=== PATIENT | female | born 1990 | race Caucasian/White ===

== ENCOUNTER 2016-09-13 18:54 | Emergency (ER) | payer MEDICAID ==
[~2016-09-13] VITALS: Ht 157.5 cm; Wt 112.0 kg
[~2016-09-13 18:54] MED LIST: ACHYD1T PO; ALBU8.5H2 IH; AZIT-21 PO; BREA1EAC5 MC; CLIN300C11 PO; CTLP20T PO; DCS100C PO; DEPRESSION MED; FAMO-119 PO; FLUO20CA42 PO; FLUO40CA PO; FLX10C PO; GNT.3OO351 OP; HC A28.3 PR; IBP800T PO; LEVO1CAP10; METR500T PO; NICO1PAT6 TD; ONDA4TAB11 PO; ONDA8TAB13 PO; PREN-115 PO; QUET100T32 PO; QUET25TA PO; QUET50TA43 PO; SULF-222 PO; TRM50T PO; [UNRECOGNIZED DRUG - CODE] PO; [UNRECOGNIZED DRUG - CODE] PO
--- NOTE | 2016-09-13 20:40 | ED General ---
General Chief Complaint: General Problems/Pain Stated Complaint: VOMITING/COUGH Nursing Triage Note: Pt presents to ED with c/o productive cough, intermittent fever, and wanting hcg test performed. Pt denies use of OTC medications. Pt reports she has taken 6 urine tests that were all positive and that she would like blood drawn. Pt denies any problems with this . LMP 12-15-16. Nursing Sepsis Screen: Possible Sepsis Risk Source of Information: Patient Exam Limitations: No Limitations History of Present Illness Time Seen by Provider: 20:40 Initial Comments Patient presents to the emergency department with complaints of productive cough , intermittent fever, chest and nasal congestion, and sore throat. Denies using kakj-ngy-vfvfryl medications. Patient also reports wanting an hCG test performed. Patient states she has taken 6 test which were all positive. Scheduled to see [facility] Thursday for test as well. Denies vaginal discharge, vaginal bleeding, abdominal pain, cramping, dysuria, frequency, hematuria, nausea, vomiting. Timing/Duration: 2-3 Days, Constant Modifying Factors: worse with Other (worse with coughing.) Allergies and Home Medications Allergies Coded Allergies: Estradiol Cypionate (Verified Allergy, Unknown, HIVES AND SWELLING, ) Penicillins (Verified Allergy, Unknown, HIVES, 01/31/15) aripiprazole (Unverified Allergy, Unknown, 03/13/15) Home Medications Cephalexin 500 Mg Capsule #30 500 MG PO TID Prescribed by: JAYNE CHRISTOPHER on 09/13/162119 Fluoxetine HCl 20 Mg Capsule 20 MG PO DAILY (Reported) Constitutional: No chills, No diaphoresis, No dizziness, No fever, malaise EENTM: see HPI Respiratory: see HPINo short of breath, No stridor, No wheezing Cardiovascular: no symptoms reported Gastrointestinal: no symptoms reported 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: no symptoms reported Musculoskeletal: no symptoms reported Skin: no symptoms reported Psychiatric/Neurological: No Symptoms Reported All Other Systems Reviewed Negative Unless Noted: Yes (Negative excepted noted.) Past Bgovtqf-Crrrpf-Tuajsd Hx Patient Social History Alcohol Use: Occasionally Uses Recreational Drug Use: No Smoking Status: Current Everyday Smoker Type Used: Cigarettes Former Smoker/When Quit: May 10, 2013 Recent Foreign Travel: No Contact w/Someone Who Travel: No Recent Infectious Disease Expo: No Recent Hopitalizations: No Physical Abuse Screen: No Sexual Abuse: No Immunizations Up To Date Tetanus Booster (TDap): Less than 5yrs PED Vaccines UTD: Yes Date of Influenza Vaccine: Jun 07, 2014 Seasonal Allergies Seasonal Allergies: No Surgeries HX Surgeries: Yes Surgeries: Section Respiratory Hx Respiratory Disorders: No Cardiovascular Hx Cardiac Disorders: No Neurological Hx Neurological Disorders: No Reproductive System Hx Reproductive Disorders: No 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 Hx 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 Disorders: Yes 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 Disorders: UTI-Chronic Gastrointestinal Hx Gastrointestinal Disorders: No Musculoskeletal Hx Musculoskeletal Disorders: No Endocrine Hx Endocrine Disorders: No HEENT HX ENT Disorders: No Cancer Hx Cancer: No Psychosocial Hx Psychiatric Problems: Yes Behavioral Health Disorders: Anxiety, Bipolar, Depression Integumentary HX Skin/Integumentary Disorder: No Blood Transfusions Hx Blood Disorders: No Reviewed Nursing Assessment Reviewed/Agree w Nursing PMH: Yes Family Medical History Significant Family History: No Pertinent Family Hx Family Medial History: Cancer 19 MOTHER, Onset:25s - 30 (uterine) Family history: Allergy 19 FATHER (seasonal allergies) Family history: Diabetes mellitus 19 FATHER (type 2) Family history: Hypertension 19 FATHER, Onset: - Hereditary disease 19 FATHER (bipolar) 19 MOTHER (bipolar) History of drug abuse 19 MOTHER, Onset: - Psychotic disorder 19 FATHER (bipolar) 19 MOTHER ([id number] suicidal) No Family History of: Abdominal aortic aneurysm Austin's disease Alcoholism Aphasia Cancer of colon Cataract Chest pain Congenital heart disease Congestive heart failure Cystic fibrosis Dementia Dysphagia Family history: Alzheimer's disease Family history: Arthritis Family history: Asthma Family history: Breast disease Family history: Cardiovascular disease Family history: Coronary thrombosis Family history: Gastrointestinal disease Family history: Glaucoma Family history: Osteoporosis Family history: Thyroid disorder Headache Hearing loss Heart disease History of - anemia History of - disorder History of - respiratory disease Human immunodeficiency virus (HIV) seropositivity Hypercholesterolemia Infertile Kidney disease Malignant neoplasm of lung Myocardial infarction Parkinson's disease Prostate cancer Seizure disorder Stroke Tuberculosis Visual impairment Physical Exam Vital Signs Vital Sign - Last 12Hours 09/13/16 20:16 Temp 97.9 Pulse 110 Resp 18 B/P 137/98 Pulse Ox 97 O2 Delivery Room Air Capillary Refill : Less Than 3 Seconds General Appearance: No Apparent Distress WD/WN Other (patient sitting up in the bed with legs crossed "east timorese style".) HEENT: PERRL/EOMI TMs Normal Pharyngeal ErythemaNo Tonsillar Enlargement, Other ((+) nasal congestion with maxillary sinus tenderness.) Neck: Full Range of Motion Non Tender Supple Lymphadenopathy (L) Lymphadenopathy (R) Respiratory: Lungs Clear Normal Breath Sounds No Respiratory Distress Cardiovascular: No Edema No Murmur Normal Peripheral Pulses Tachycardia Gastrointestinal: Normal Bowel Sounds No Organomegaly Non Tender SoftNo Distended Back: Normal Inspection No CVA Tenderness Extremity: Normal Capillary Refill Neurologic/Psychiatric: Alert Oriented x3 Normal Mood/Affect Skin: Normal Color Warm/Dry Progress/Results/Core Measures Results/Orders Lab Results Laboratory Tests Test 09/13/16 20:23 Range/Units Urine Bacteria MODERATE H /HPF Urine Bilirubin NEGATIVE NEGATIVE Urine Casts NONE /LPF Urine Clarity VERY CLOUDY H Urine Color YELLOW Urine Crystals NONE /LPF Urine Culture Indicated NO Urine Glucose (UA) NEGATIVE NEGATIVE Urine Ketones NEGATIVE NEGATIVE Urine Leukocyte Esterase 1+ H NEGATIVE Urine Mucus LARGE H /LPF Urine Nitrite NEGATIVE NEGATIVE Urine Protein 2+ H NEGATIVE Urine RBC RARE /HPF Urine RBC (Auto) 1+ H NEGATIVE Urine Specific [place] 1.025 H 1.016-1.022 Urine Squamous Epithelial Cells >50 H /HPF Urine Urobilinogen 8 H NORMAL MG/DL Urine WBC 2-5 /HPF Urine pH 6 5-9 My Orders Orders-JAYNE CRHISTOPHER Urine Bedside (09/13/16 20:45) Ua Culture If Indicated (09/13/16 21:17) Vital Signs/I&O Blood Pressure Mean: 111 Departure Communication Progress Notes Urine hCG you repeated by this examiner at patient's request. Patient weakly positive for . results were discussed with the patient. Proceed with discharge to home with oral antibiotics. Patient instructed to follow-up with [facility] tomorrow as previously scheduled. All return precautions were discussed with the patient. Patient voices understanding and agrees with the treatment plan. Patient case discussed with Dr. Dorsey, he agrees with the plan of care. Impression Impression: Primary Impression: Sinusitis, acute Qualified Code: J01.10 - Acute frontal sinusitis, unspecified Additional Impression: Positive urine test Disposition: HOME, SELF-CARE Condition: Improved Departure-Patient Inst. Decision time for Depature: 21:18 Referrals: [facility] (PCP/Family) Primary Care Physician Patient Instructions: Sinusitis, Adult (DC), Smoking and Add. Discharge Instructions: All discharge instructions reviewed with patient and/or family. Voiced understanding. Medications as instructed. Tylenol [id number] as directed for pain or fever if needed. Push fluids. Cool humidifier. Saline nasal spray [id number] as directed for symptoms. Follow-up with your family practitioner Thursday as previously scheduled. Return to the emergency department for worsened symptoms or any other concerns. Scripts Cephalexin 500 Mg [id number] Mg PO TID #30 CAP Ref 0 Prov:JAYNE CHRISTOPHER 09/13/16 JAYNE CHRISTOPHER Sep 13, 2016 20:40
[2016-09-13] MEDS ORDERED: CEPH500C PO (21:20)
[2016-09-13 21:28] LABS: BILIRUBIN,URINE NEGATIVE (NEGATIVE); KETONES,URINE NEGATIVE (NEGATIVE); LEUKOCYTE ESTERASE ,URINE 1+ (NEGATIVE); NITRITE,URINE NEGATIVE (NEGATIVE); PH,URINE 6 (5-9); PROTEIN,URINE 2+ (NEGATIVE); UROBILINOGEN,URINE 8 MG/DL (NORMAL)
[2016-09-13 21:44] LABS: SQUAMOUS EPITHELIAL CELL,UR >50 /HPF
[2016-09-13 21:53] VITALS: BP 132/89
== END 2016-09-13 21:53 | disposition home or self-care (01) ==
LOC: EDUNIT# 18:54 → ER 18:55
DX: J01.90 Acute sinusitis, unspecified (principal); Z32.01 Encounter for pregnancy test, result positive; R11.10 Vomiting, unspecified
CPT/HCPCS: 81000; 84703; 99282

== ENCOUNTER 2016-09-21 19:47 | Emergency (ER) | payer MEDICAID ==
[~2016-09-21] VITALS: Ht 157.5 cm; Wt 112.0 kg
[~2016-09-21 19:47] MED LIST changes: +CEPH500C PO
[2016-09-21 21:15] LABS: BILIRUBIN,URINE NEGATIVE (NEGATIVE); KETONES,URINE NEGATIVE (NEGATIVE); LEUKOCYTE ESTERASE ,URINE 1+ (NEGATIVE); NITRITE,URINE NEGATIVE (NEGATIVE); PH,URINE 6 (5-9); PROTEIN,URINE NEGATIVE (NEGATIVE); UROBILINOGEN,URINE NORMAL (NORMAL)
[2016-09-21 21:32] LABS: WBC,URINE 0-2 /HPF
--- NOTE | 2016-09-21 21:58 | ED Abdominal Pain ---
General Chief Complaint: -Female Stated Complaint: CRAMPING Nursing Triage Note: PT TO ED 5 W/ FAMILY FOR C/O ABD CRAMPING. REPORTS SHE IS 6WKS . DENIES BLEEDING, DISCHARGE, PAIN/BURNING UPON URINATION AT THIS TIME Sepsis Screen: No Definite Risk Source of Information: Patient Exam Limitations: No Limitations History of Present Illness Time Seen By Provider: 21:57 Initial Comments To ER with suprapubic abdominal cramping for the past 6 days. She found out one week ago that she was . Ab1. She denies any vaginal bleeding whatsoever. Denies dysuria fevers or chills. Timing/Duration: 1 Week Severity/Quality: Cramping Location: Suprapubic Radiation: No Radiation Activities at Onset: None Associated Symptoms: No Fever/Chills, No Nausea/Vomiting Allergies and Home Medications Allergies Coded Allergies: Estradiol Cypionate (Verified Allergy, Unknown, HIVES AND SWELLING, ) Penicillins (Verified Allergy, Unknown, HIVES, 01/31/15) aripiprazole (Unverified Allergy, Unknown, 03/13/15) Review of Systems Constitutional: see HPI EENTM: No Symptoms Reported Respiratory: No Symptoms Reported Cardiovascular: No Symptoms Reported Gastrointestinal: See HPI Abdominal PainDenies Nausea, Denies Vomiting 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: No Symptoms Reported Musculoskeletal: no symptoms reported Skin: no symptoms reported Psychiatric/Neurological: No Symptoms Reported Endocrine: No Symptoms Reported Past Ehekhlz-Bfwjlf-Siapuh Hx Patient Social History Alcohol Use: Denies Use Recreational Drug Use: No Smoking Status: Current Everyday Smoker Type Used: Cigarettes Former Smoker/When Quit: May 10, 2013 Recent Foreign Travel: No Contact w/Someone Who Travel: No Recent Infectious Disease Expo: No Recent Hopitalizations: No Physical Abuse Screen: No Sexual Abuse: No Immunizations Up To Date Tetanus Booster (TDap): Less than 5yrs PED Vaccines UTD: Yes Date of Influenza Vaccine: Jun 07, 2014 Seasonal Allergies Seasonal Allergies: No Surgeries HX Surgeries: Yes Surgeries: Section Respiratory Hx Respiratory Disorders: No Cardiovascular Hx Cardiac Disorders: No Neurological Hx Neurological Disorders: No Reproductive System : Yes Hx : 3 Hx Para: 1 Hx Total # of Abortions (Spona: 1 Hx Reproductive Disorders: No Sexually Transmitted Disease: No 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 Hx 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 Disorders: Yes 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 Disorders: UTI-Chronic Gastrointestinal Hx Gastrointestinal Disorders: No Musculoskeletal Hx Musculoskeletal Disorders: No Endocrine Hx Endocrine Disorders: No HEENT HX ENT Disorders: No Cancer Hx Cancer: No Psychosocial Hx Psychiatric Problems: Yes Behavioral Health Disorders: Anxiety, Bipolar, Depression Integumentary HX Skin/Integumentary Disorder: No Blood Transfusions Hx Blood Disorders: No Family Medical History Significant Family History: No Pertinent Family Hx Family Medial History: Cancer 19 MOTHER, Onset: - 30 (uterine) Family history: Allergy 19 FATHER (seasonal allergies) Family history: Diabetes mellitus 19 FATHER (type 2) Family history: Hypertension 19 FATHER, Onset: - Hereditary disease 19 FATHER (bipolar) 19 MOTHER (bipolar) History of drug abuse 19 MOTHER, Onset: - Psychotic disorder 19 FATHER (bipolar) 19 MOTHER ([id number] suicidal) No Family History of: Abdominal aortic aneurysm Lamar's disease Alcoholism Aphasia Cancer of colon Cataract Chest pain Congenital heart disease Congestive heart failure Cystic fibrosis Dementia Dysphagia Family history: Alzheimer's disease Family history: Arthritis Family history: Asthma Family history: Breast disease Family history: Cardiovascular disease Family history: Coronary thrombosis Family history: Gastrointestinal disease Family history: Glaucoma Family history: Osteoporosis Family history: Thyroid disorder Headache Hearing loss Heart disease History of - anemia History of - disorder History of - respiratory disease Human immunodeficiency virus (HIV) seropositivity Hypercholesterolemia Infertile Kidney disease Malignant neoplasm of lung Myocardial infarction Parkinson's disease Prostate cancer Seizure disorder Stroke Tuberculosis Visual impairment Physical Exam Vital Signs VS - Last 72 Hours, by Label 09/21/16 20:51 Temp 98.6 Pulse 116 Resp 20 B/P 139/87 Pulse Ox 98 O2 Delivery Room Air Capillary Refill : Less Than 3 Seconds General Appearance: WD/WN no apparent distress HEENT: PERRL/EOMI normal ENT inspection Respiratory: normal breath sounds no respiratory distress no accessory muscle use Cardiovascular: regular rate, rhythm no murmur Gastrointestinal: normal bowel sounds non tender soft Extremities: normal range of motion non-tender Neurologic/Psychiatric: alert normal mood/affect oriented x 3 Skin: normal color warm/dry Progress/Results/Core Measures Results/Orders Lab Results Laboratory Tests Test 09/21/16 20:57 09/21/16 21:55 Range/Units Urine Bacteria NONE /HPF Urine Bilirubin NEGATIVE NEGATIVE Urine Casts NONE /LPF Urine Clarity SLIGHTLY CLOUDY Urine Color YELLOW Urine Crystals NONE /LPF Urine Culture Indicated NO Urine Glucose (UA) NEGATIVE NEGATIVE Urine Ketones NEGATIVE NEGATIVE Urine Leukocyte Esterase 1+ H NEGATIVE Urine Mucus NEGATIVE /LPF Urine Nitrite NEGATIVE NEGATIVE Urine Protein NEGATIVE NEGATIVE Urine RBC NONE /HPF Urine RBC (Auto) NEGATIVE NEGATIVE Urine Specific [place] 1.020 1.016-1.022 Urine Squamous Epithelial Cells 5-10 /HPF Urine Urobilinogen NORMAL NORMAL MG/DL Urine WBC 0-2 /HPF Urine pH 6 5-9 Basophils # (Auto) 0.0 0.0-0.1 10^3/uL Basophils (%) (Auto) 0 0-10 % Eosinophils # (Auto) 0.1 0.0-0.3 10^3/uL Eosinophils (%) (Auto) 1 0-10 % Hematocrit 41 35-52 % Hemoglobin 14.1 11.5-16.0 G/DL Human Chorionic Gonadotropin, Quant 592 H <5 MIU/ML Lymphocytes # (Auto) 3.0 1.0-4.0 X 10^3 Lymphocytes (%) (Auto) 25 12-44 % Mean Corpuscular Hemoglobin 29 25-34 PG Mean Corpuscular Hemoglobin Concent 34 32-36 G/DL Mean Corpuscular Volume 86 80-99 FL Mean Platelet Volume 10.2 7.4-10.4 FL Monocytes # (Auto) 0.7 0.0-1.0 X 10^3 Monocytes (%) (Auto) 6 0-12 % Neutrophils # (Auto) 8.1 H 1.8-7.8 X 10^3 Neutrophils (%) (Auto) 68 42-75 % Platelet Count 216 130-400 10^3/uL Red Blood Count 4.83 4.35-5.85 10^6/uL Red Cell Distribution Width 13.2 10.0-14.5 % White Blood Count 11.9 H 4.3-11.0 10^3/uL My Orders Orders-ÁLVARO KIRKLAND APRN Hcg,Quantitative (09/21/16 21:43) Cbc With Automated Diff (09/21/16 21:43) Vital Signs/I&O Vital Sign - Last 12Hours 09/21/16 20:51 Temp 98.6 Pulse 116 Resp 20 B/P 139/87 Pulse Ox 98 O2 Delivery Room Air Blood Pressure Mean: 104 Departure Communication Time/Spoke to Admitting Phy: 22:46 Progress Notes Discussed the case with Dr. Arana. Given her Quant of 591 ultrasound would be helpful at this point. She should follow-up with primary care. Impression Impression: Primary Impression: Cramping affecting , antepartum Disposition: 01 HOME, SELF-CARE Condition: Stable Departure-Patient Inst. Decision time for Depature: 22:46 Referrals: [facility] [place] (PCP/Family) Primary Care Physician Patient Instructions: NO INSTRUCTIONS GIVEN Add. Discharge Instructions: 1. Return to ER for any concerns 2. Follow-up with your doctor next week 3. All discharge instructions reviewed with patient and/or family. Voiced understanding. ÁLVARO KIRKLAND APRN Sep 21, 2016 21:58
[2016-09-21 22:05] LABS: BASOPHILS % (AUTO) 0 % (0-10); EOSINOPHILS # (AUTO) 0.1 10^3/uL (0.0-0.3); EOSINOPHILS % (AUTO) 1 % (0-10); LYMPHOCYTES % (AUTO) 25 % (12-44); MEAN CORPUSCULAR HEMOGLOBIN 29 PG (25-34); MEAN CORPUSCULAR HGB CONC 34 G/DL (32-36); MEAN CORPUSCULAR VOLUME 86 FL (80-99); MEAN PLATELET VOLUME 10.2 FL (7.4-10.4); MONOCYTES # (AUTO) 0.7 X 10^3 (0.0-1.0); MONOCYTES % (AUTO) 6 % (0-12); NEUTROPHILS # (AUTO) 8.1 X 10^3 (1.8-7.8); NEUTROPHILS % (AUTO) 68 % (42-75); PLATELET COUNT 216 10^3/uL (130-400); RED BLOOD COUNT 4.83 10^6/uL (4.35-5.85); RED CELL DISTRIBUTION WIDTH 13.2 % (10.0-14.5); WHITE BLOOD COUNT 11.9 10^3/uL (4.3-11.0)
[2016-09-21 22:50] VITALS: BP 0/0
== END 2016-09-21 22:50 | disposition home or self-care (01) ==
LOC: EDUNIT# 19:47 → ER 19:50
DX: O26.891 Other specified pregnancy related conditions, first trimester (principal); O99.331 Smoking (tobacco) complicating pregnancy, first trimester; Z3A.01 Less than 8 weeks gestation of pregnancy
CPT/HCPCS: 36415; 81000; 84702; 85025; 99283

== ENCOUNTER 2016-10-07 18:05 | Emergency (ER) | payer MEDICAID ==
[~2016-10-07] VITALS: Ht 157.5 cm; Wt 112.0 kg
--- NOTE | 2016-10-07 18:23 | ED GU-Female ---
General Chief Complaint: -Female Stated Complaint: 8 WKS PREG/VAG BLEEDING Source: patient History of Present Illness Time seen by provider: 18:18 Initial Comments PT STATES SHE IS 6 WEEKS AND SPOTTING IN ER 09/21/16 FOR SIMILAR WAS SEEN AT [facility] ER FOR CRAMPING AND SPOTTING ON 10/04/16--STATES HER ULTRASOUND WAS NORMAL AND HCG WAS 722, THEN WENT BACK TODAY TO [facility] FOR OUTPATIENT LAB AND HCG WAS 754 PT BEGAN SPOTTING AGAIN AT 1600 TODAY--BLOOD ON TISSUE WITH WIPING AND SMALL SPOT ON PANTILINER, BUT NO PAIN TODAY NO URINARY SYMPTOMS NO NAUSEA/VOMITING AT THIS TIME, BUT HAS HAD SOME MILD NAUSEA IN THE MORNINGS. HAS NOT ATTEMPTED TO FOLLOW UP WITH [facility], AND DOES NOT HAVE AN APPOINTMENT --STATES "THEY WON'T SEE ME UNTIL I'M 10 WEEKS" , BUT HAS NOT MADE AN APPOINTMENT FOR THEN EITHER LMP 08/21/17--NORMAL, HAD POSITIVE HOME TEST WEEK OF SEPTEMBER PT IS AB1--NO D&C DONE PCP: [facility] Allergies and Home Medications Allergies Coded Allergies: Estradiol Cypionate (Verified Allergy, Unknown, HIVES AND SWELLING, ) Penicillins (Verified Allergy, Unknown, HIVES, 01/31/15) aripiprazole (Unverified Allergy, Unknown, 03/13/15) Constitutional: no symptoms reported Respiratory: no symptoms reported Gastrointestinal: no symptoms reported 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: see HPI : Yes LMP: Aug 21, 2016 Musculoskeletal: no symptoms reported Skin: no symptoms reported Psychiatric/Neurological: No Symptoms Reported Endocrine: No Symptoms Reported Hematologic/Lymphatic: No Symptoms Reported Past Ftbpsdg-Btyovt-Igzrai Hx Patient Social History Alcohol Use: Denies Use Recreational Drug Use: No Smoking Status: Current Everyday Smoker Type Used: Cigarettes Recent Foreign Travel: No Contact w/Someone Who Travel: No Recent Hopitalizations: No Immunizations Up To Date Tetanus Booster (TDap): Less than 5yrs PED Vaccines UTD: Yes Date of Influenza Vaccine: Jun 07, 2014 Seasonal Allergies Seasonal Allergies: No Surgeries HX Surgeries: Yes Surgeries: Section Respiratory Hx Respiratory Disorders: No Cardiovascular Hx Cardiac Disorders: No Neurological Hx Neurological Disorders: No Reproductive System Hx Reproductive Disorders: No Sexually Transmitted Disease: No 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 Hx 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 Disorders: Yes 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 Disorders: UTI-Chronic Gastrointestinal Hx Gastrointestinal Disorders: No Musculoskeletal Hx Musculoskeletal Disorders: No Endocrine Hx Endocrine Disorders: No HEENT HX ENT Disorders: No Cancer Hx Cancer: No Psychosocial Hx Psychiatric Problems: Yes Behavioral Health Disorders: Anxiety, Bipolar, Depression Integumentary HX Skin/Integumentary Disorder: No Blood Transfusions Hx Blood Disorders: No Family Medical History Significant Family History: No Pertinent Family Hx Family Medial History: Cancer 19 MOTHER, Onset:25's - 30 (uterine) Family history: Allergy 19 FATHER (seasonal allergies) Family history: Diabetes mellitus 19 FATHER (type 2) Family history: Hypertension 19 FATHER, Onset: - Hereditary disease 19 FATHER (bipolar) 19 MOTHER (bipolar) History of drug abuse 19 MOTHER, Onset: - Psychotic disorder 19 FATHER (bipolar) 19 MOTHER ([id number] suicidal) No Family History of: Abdominal aortic aneurysm [place]'s disease Alcoholism Aphasia Cancer of colon Cataract Chest pain Congenital heart disease Congestive heart failure Cystic fibrosis Dementia Dysphagia Family history: Alzheimer's disease Family history: Arthritis Family history: Asthma Family history: Breast disease Family history: Cardiovascular disease Family history: Coronary thrombosis Family history: Gastrointestinal disease Family history: Glaucoma Family history: Osteoporosis Family history: Thyroid disorder Headache Hearing loss Heart disease History of - anemia History of - disorder History of - respiratory disease Human immunodeficiency virus (HIV) seropositivity Hypercholesterolemia Infertile Kidney disease Malignant neoplasm of lung Myocardial infarction Parkinson's disease Prostate cancer Seizure disorder Stroke Tuberculosis Visual impairment Physical Exam Vital Signs Vital Sign - Last 12Hours 10/07/16 18:20 Temp 97.3 Pulse 75 Resp 18 B/P 145/89 Pulse Ox 97 Capillary Refill : General Appearance: WD/WN obese Cardiovascular: regular rate, rhythm Respiratory: normal breath sounds Gastrointestinal: normal bowel sounds non tender soft Back: normal inspection Extremities: normal inspection Neurologic/Psychiatric: loss prevention specialist II-XII nml as tested no motor/sensory deficits alert normal mood/affect oriented x 3 Progress/Results/Core Measures Results/Orders Lab Results Laboratory Tests Test 10/07/16 18:45 Range/Units Anion Gap 11 5-14 MMOL/L BUN/Creatinine Ratio 12 Basophils # (Auto) 0.0 0.0-0.1 10^3/uL Basophils (%) (Auto) 0 0-10 % Blood Urea Nitrogen 9 7-18 MG/DL Calcium Level 9.4 8.5-10.1 MG/DL Carbon Dioxide Level 22 21-32 MMOL/L Chloride Level 106 98-107 MMOL/L Creatinine 0.77 0.60-1.30 MG/DL Eosinophils # (Auto) 0.1 0.0-0.3 10^3/uL Eosinophils (%) (Auto) 1 0-10 % Estimat Glomerular Filtration Rate > 60 Glucose Level 93 70-105 MG/DL Hematocrit 44 35-52 % Hemoglobin 15.1 11.5-16.0 G/DL Human Chorionic Gonadotropin, Quant 719 H <5 MIU/ML Lymphocytes # (Auto) 2.7 1.0-4.0 X 10^3 Lymphocytes (%) (Auto) 20 12-44 % Mean Corpuscular Hemoglobin 29 25-34 PG Mean Corpuscular Hemoglobin Concent 34 32-36 G/DL Mean Corpuscular Volume 85 80-99 FL Mean Platelet Volume 10.1 7.4-10.4 FL Monocytes # (Auto) 0.8 0.0-1.0 X 10^3 Monocytes (%) (Auto) 6 0-12 % Neutrophils # (Auto) 9.8 H 1.8-7.8 X 10^3 Neutrophils (%) (Auto) 73 42-75 % Platelet Count 232 130-400 10^3/uL Potassium Level 3.7 3.6-5.0 MMOL/L Red Blood Count 5.23 4.35-5.85 10^6/uL Red Cell Distribution Width 13.6 10.0-14.5 % Sodium Level 139 135-145 MMOL/L White Blood Count 13.5 H 4.3-11.0 10^3/uL My Orders Orders-DIONTE MONSIVAIS DO Basic Metabolic Panel (10/07/16 18:21) Cbc With Automated Diff (10/07/16 18:21) Hcg,Quantitative (10/07/16 18:21) Us Ob Single Fetus<14 [id number] (10/07/16 18:21) Vital Signs/I&O Vital Sign - Last 12Hours 10/07/16 18:20 Temp 97.3 Pulse 75 Resp 18 B/P 145/89 Pulse Ox 97 Progress Note : Progress Note BLOOD TYPE: B + NO ACTIVE BLEEDING DURING ER STAY, AND DID NOT USE ANY PADS DURING ER STAY Diagnostic Imaging Comments ULTRASOUND--CYSTIC STRUCTURE IN ENDOMETRIAL CAVITY, MAY RELATE TO EARLY GESTATIONAL SAC OF APPROXIMATELY 5 WEEKS 1 DAY. NO DEFINITE POLE OR YOLK SAC. CANNOT RULE OUT BLIGHTED OVUM OR ECTOPIC WITH PSEUDO GESTATIONAL SAC. PER RADIOLOGIST REPORT @ 1912 Reviewed: Reviewed by Me Departure Impression Impression: Primary Impression: Threatened miscarriage in early Disposition: 01 HOME, SELF-CARE Condition: Stable Departure-Patient Inst. [place]: [facility] [place] [facility] [place] (PCP/Family) Primary Care Physician Patient Instructions: Threatened Miscarriage (DC) Add. Discharge Instructions: NOTHING IN VAGINA--NO TAMPONS, DOUCHING OR INTERCOURSE KEEP AN ACCURATE PAD COUNT--RETURN TO ER IF SOAKING MORE THAN 1 MAXI PAD AN HOUR FOLLOW UP WITH [facility] THIS WEEK FOR FURTHER CARE All discharge instructions reviewed with patient and/or family. Voiced understanding. DIONTE MONSIVAIS DO Oct 07, 2016 18:23
[2016-10-07 18:56] LABS: BASOPHILS % (AUTO) 0 % (0-10); EOSINOPHILS # (AUTO) 0.1 10^3/uL (0.0-0.3); EOSINOPHILS % (AUTO) 1 % (0-10); LYMPHOCYTES # (AUTO) 2.7 X 10^3 (1.0-4.0); LYMPHOCYTES % (AUTO) 20 % (12-44); MEAN CORPUSCULAR HEMOGLOBIN 29 PG (25-34); MEAN CORPUSCULAR HGB CONC 34 G/DL (32-36); MEAN CORPUSCULAR VOLUME 85 FL (80-99); MEAN PLATELET VOLUME 10.1 FL (7.4-10.4); MONOCYTES # (AUTO) 0.8 X 10^3 (0.0-1.0); MONOCYTES % (AUTO) 6 % (0-12); NEUTROPHILS # (AUTO) 9.8 X 10^3 (1.8-7.8); NEUTROPHILS % (AUTO) 73 % (42-75); PLATELET COUNT 232 10^3/uL (130-400); RED BLOOD COUNT 5.23 10^6/uL (4.35-5.85); RED CELL DISTRIBUTION WIDTH 13.6 % (10.0-14.5); WHITE BLOOD COUNT 13.5 10^3/uL (4.3-11.0)
--- NOTE | 2016-10-07 19:01 | Diagnostic Imaging Report ---
INDICATION: Bleeding COMPARISON: None available TECHNIQUE: Transabdominal transvaginal first trimester pelvic OB ultrasound was performed on October 07, 2016. FINDINGS: The uterus is within normal limits in size. The endometrium measures 1.0 cm, which is within normal limits. Within the endometrial cavity there is an ovoid anechoic cystic lesion. No definite pole or yolk sac identified. If this relates to a gestational sac, it would be consistent with an estimated gestational age of 5 weeks and 1 day. The bilateral ovaries were unable to be visualized. No significant free fluid. IMPRESSION: Cystic structure within the endometrial cavity which may relate to a gestational sac would be consistent with an estimated gestational age of 5 weeks and 1 day. No definite pole or yolk sac identified. This is favored to simply relate to early gestational age. However, blighted ovum or less likely ectopic with a pseudo-gestational sac not totally excluded. Recommend correlation with beta hCG levels. Additionally, followup beta-hCG levels and ultrasound within 3-5 days could help to further evaluate. No significant free fluid. The bilateral ovaries were not seen secondary to overlying bowel gas. Dictated by: Dictated on workstation # [id number]
[2016-10-07 19:17] LABS: ANION GAP 11 MMOL/L (5-14); BLOOD UREA NITROGEN 9 MG/DL (7-18); BUN/CREATININE RATIO 12; CALCIUM 9.4 MG/DL (8.5-10.1); CARBON DIOXIDE 22 MMOL/L (21-32); CHLORIDE 106 MMOL/L (98-107); CREATININE SERUM 0.77 MG/DL (0.60-1.30); GFR ESTIMATED > 60; GLUCOSE 93 MG/DL (70-105); POTASSIUM 3.7 MMOL/L (3.6-5.0); SODIUM 139 MMOL/L (135-145)
[2016-10-07 19:41] VITALS: BP 145/89
== END 2016-10-07 19:40 | disposition home or self-care (01) ==
LOC: EDUNIT# 18:05 → ER 18:11
DX: O20.0 Threatened abortion (principal); Z3A.01 Less than 8 weeks gestation of pregnancy; O99.331 Smoking (tobacco) complicating pregnancy, first trimester
CPT/HCPCS: 36415; 76801; 80048; 84702; 85025; 99283

== ENCOUNTER 2016-12-20 20:27 | Emergency (ER) | payer MEDICAID ==
[~2016-12-20] VITALS: Ht 154.9 cm; Wt 114.3 kg
--- NOTE | 2016-12-20 20:58 | ED GU-Female ---
General Chief Complaint: -Female Stated Complaint: POSSIBLE MISCARRIAGE Source: patient Exam Limitations: no limitations History of Present Illness Time seen by provider: 20:59 Initial Comments To ER with reports of a possible miscarriage. She was seen here in September and diagnosed with miscarriage. She states that she followed up with [facility] but was told that nothing needed done. She had intermittent bleeding throughout the months of September and November and bleeding resumed about 7 days ago. She has had minimal cramping tonight and finally tonight she passed what she believes to be material. This was brought to the emergency room and we did send this to pathology. She denies any fevers or pelvic pain at this time. She denies any vaginal discharge. She states that at the time of her miscarriage in September she was told that she was about 7 weeks gestation. Timing/Duration: just prior to arrival Severity/Quality: moderate Location: suprapubic Prior 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 Problems: none Associated Symptoms: No fever/chills, No nausea/vomiting Allergies and Home Medications Allergies Coded Allergies: Estradiol Cypionate (Verified Allergy, Unknown, HIVES AND SWELLING, ) Penicillins (Verified Allergy, Unknown, HIVES, 01/31/15) aripiprazole (Unverified Allergy, Unknown, 03/13/15) Constitutional: see HPI, No chills, No fever EENTM: see HPI Respiratory: no symptoms reported Cardiovascular: no symptoms reported Gastrointestinal: No abdominal pain 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: no symptoms reported Musculoskeletal: no symptoms reported Skin: no symptoms reported Past Gfhuewg-Utrfuh-Thjjla Hx Patient Social History Alcohol Use: Occasionally Uses Recreational Drug Use: No Smoking Status: Current Everyday Smoker Type Used: Cigarettes Recent Foreign Travel: No Contact w/Someone Who Travel: No Recent Hopitalizations: No Immunizations Up To Date Tetanus Booster (TDap): Less than 5yrs PED Vaccines UTD: Yes Date of Influenza Vaccine: Jun 07, 2014 Seasonal Allergies Seasonal Allergies: No Surgeries HX Surgeries: Yes Surgeries: Section Respiratory Hx Respiratory Disorders: No Cardiovascular Hx Cardiac Disorders: No Neurological Hx Neurological Disorders: No Reproductive System Hx Reproductive Disorders: No Sexually Transmitted Disease: No 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 Hx 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 Disorders: Yes 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 Disorders: UTI-Chronic Gastrointestinal Hx Gastrointestinal Disorders: No Musculoskeletal Hx Musculoskeletal Disorders: No Endocrine Hx Endocrine Disorders: No HEENT HX ENT Disorders: No Cancer Hx Cancer: No Psychosocial Hx Psychiatric Problems: Yes Behavioral Health Disorders: Anxiety, Bipolar, Depression Integumentary HX Skin/Integumentary Disorder: No Blood Transfusions Hx Blood Disorders: No Family Medical History Significant Family History: No Pertinent Family Hx Family Medial History: Cancer 19 MOTHER, Onset: - 30 (uterine) Family history: Allergy 19 FATHER (seasonal allergies) Family history: Diabetes mellitus 19 FATHER (type 2) Family history: Hypertension 19 FATHER, Onset: - Hereditary disease 19 FATHER (bipolar) 19 MOTHER (bipolar) History of drug abuse 19 MOTHER, Onset: - Psychotic disorder 19 FATHER (bipolar) 19 MOTHER (eg5lpytg suicidal) No Family History of: Abdominal aortic aneurysm Jeff's disease Alcoholism Aphasia Cancer of colon Cataract Chest pain Congenital heart disease Congestive heart failure Cystic fibrosis Dementia Dysphagia Family history: Alzheimer's disease Family history: Arthritis Family history: Asthma Family history: Breast disease Family history: Cardiovascular disease Family history: Coronary thrombosis Family history: Gastrointestinal disease Family history: Glaucoma Family history: Osteoporosis Family history: Thyroid disorder Headache Hearing loss Heart disease History of - anemia History of - disorder History of - respiratory disease Human immunodeficiency virus (HIV) seropositivity Hypercholesterolemia Infertile Kidney disease Malignant neoplasm of lung Myocardial infarction Parkinson's disease Prostate cancer Seizure disorder Stroke Tuberculosis Visual impairment Physical Exam Vital Signs Vital Sign - Last 12Hours 12/20/16 20:32 Temp 97.1 Pulse 78 Resp 20 B/P (MAP) 125/90 Pulse Ox 98 O2 Delivery Room Air Capillary Refill : General Appearance: WD/WN, no apparent distress HEENT: PERRL/EOMI, normal ENT inspection Neck: non-tender, full range of motion Respiratory: no respiratory distress, no accessory muscle use Gastrointestinal: normal bowel sounds, non tender, soft Extremities: normal range of motion, non-tender Neurologic/Psychiatric: alert, normal mood/affect, oriented x 3 Skin: normal color, warm/dry Progress/Results/Core Measures Results/Orders Lab Results Laboratory Tests Test 12/20/16 21:01 Range/Units White Blood Count 12.1 H 4.3-11.0 10^3/uL Red Blood Count 5.11 4.35-5.85 10^6/uL Hemoglobin 14.4 11.5-16.0 G/DL Hematocrit 43 35-52 % Mean Corpuscular Volume 84 80-99 FL Mean Corpuscular Hemoglobin 28 25-34 PG Mean Corpuscular Hemoglobin Concent 34 32-36 G/DL Red Cell Distribution Width 13.6 10.0-14.5 % Platelet Count 226 130-400 10^3/uL Mean Platelet Volume 10.3 7.4-10.4 FL Human Chorionic Gonadotropin, Quant < 5 <5 MIU/ML My Orders Orders - ÁLVARO KIRKLAND APRN Cbc No Diff (12/20/16 20:52) Hcg,Quantitative (12/20/16 20:52) Ua Culture If Indicated (12/20/16 20:52) Us Non Ob Transvaginal [id number] (12/20/16 20:52) Vital Signs/I&O Vital Sign - Last 12Hours 12/20/16 20:32 Temp 97.1 Pulse 78 Resp 20 B/P (MAP) 125/90 Pulse Ox 98 O2 Delivery Room Air Departure Communication Progress Notes The passed tissue has been sent to pathology by the nurse before I was able to see it so it is being analyzed. Impression Impression: Primary Impression: passage of tissue from vagina Disposition: 01 HOME, SELF-CARE Condition: Stable Departure-Patient Inst. Decision time for Depature: 22:07 Referrals: [facility] (PCP/Family) Primary Care Physician Patient Instructions: NO INSTRUCTIONS GIVEN Add. Discharge Instructions: 1. Return to ER for any concerns 2. Follow-up with your regular doctor next week 3. All discharge instructions reviewed with patient and/or family. Voiced understanding. ÁLVARO KIRKLAND APRN Dec 20, 2016 20:58
[2016-12-20 21:09] LABS: MEAN PLATELET VOLUME 10.3 FL (7.4-10.4); RED BLOOD COUNT 5.11 10^6/uL (4.35-5.85); RED CELL DISTRIBUTION WIDTH 13.6 % (10.0-14.5); WHITE BLOOD COUNT 12.1 10^3/uL (4.3-11.0)
[2016-12-20 22:17] VITALS: BP 0/0
--- NOTE | 2016-12-21 05:53 | Diagnostic Imaging Report ---
EXAM: US NON OB TRANSVAGINAL [id number] INDICATION: Vaginal bleeding. COMPARISON: Pelvic ultrasound 10/07/2016. FINDINGS: The uterus measures 8.8 x 4.1 x 3.4 cm. Endometrial stripe measures 6 mm. There is no fluid collection or evidence of a gestational sac in the endometrial canal. The ovaries are not seen bilaterally. No adnexal masses. No free fluid in the pelvis. IMPRESSION: No evidence of IUP. Endometrial thickness is 6 mm. The ovaries are not identified. Dictated by: Dictated on workstation # [id number]
== END 2016-12-20 22:17 | disposition home or self-care (01) ==
LOC: EDUNIT# 20:27 → ER 20:30
DX: N93.8 Other specified abnormal uterine and vaginal bleeding (principal); F17.210 Nicotine dependence, cigarettes, uncomplicated
CPT/HCPCS: 36415; 76830; 84702; 85027; 88305; 99283

== ENCOUNTER 2017-03-28 14:04 | Emergency (ER) | payer MEDICAID ==
[~2017-03-28] VITALS: Ht 154.9 cm; Wt 116.6 kg
--- NOTE | 2017-03-28 14:29 | Diagnostic Imaging Report ---
INDICATION: Left ankle pain. 3 views of the left ankle show no fracture, dislocation, or other acute abnormalities. IMPRESSION: Negative left ankle. Dictated by: Dictated on workstation # [id number]
[2017-03-28] MEDS ORDERED: HYDR-756 PO (14:53)
--- NOTE | 2017-03-28 14:53 | ED Lower Extremity ---
General Chief Complaint: Lower Extremity Stated Complaint: FALL/L ANKLE AND FOOT SWELLING AND PAIN Nursing Triage Note: c/o pain to left ankle. Pt missed a step and twisted her ankle. Nursing Sepsis Screen: No Definite Risk Source: patient Exam Limitations: no limitations History of Present Illness Time seen by provider: 14:20 Initial Comments The patient is a 26-year-old white female who reports that she missed a step while descending yesterday and rolled her left ankle. There was a pop and immediate pain and swelling. The swelling has gotten worse since that time and walking is difficult. There is no past history of ankle injuries. Onset: yesterday Pain/Injury Location: left ankle Method of Injury: fell Allergies and Home Medications Allergies Coded Allergies: Estradiol Cypionate (Verified Allergy, Unknown, HIVES AND SWELLING, ) Penicillins (Verified Allergy, Unknown, HIVES, 01/31/15) aripiprazole (Unverified Allergy, Unknown, 03/13/15) Constitutional: see HPI EENTM: no symptoms reported Respiratory: no symptoms reported Cardiovascular: no symptoms reported Gastrointestinal: no symptoms reported 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: no symptoms reported Musculoskeletal: see HPI Skin: no symptoms reported Psychiatric/Neurological: No Symptoms Reported Past Xfqsgff-Jnfqdg-Ogbwtg Hx Patient Social History Alcohol Use: Occasionally Uses Recreational Drug Use: No Smoking Status: Current Everyday Smoker Type Used: Cigarettes Recent Foreign Travel: No Contact w/Someone Who Travel: No Recent Infectious Disease Expo: No Recent Hopitalizations: No Immunizations Up To Date Tetanus Booster (TDap): Less than 5yrs PED Vaccines UTD: Yes Date of Influenza Vaccine: Jun 07, 2014 Seasonal Allergies Seasonal Allergies: No Surgeries HX Surgeries: Yes Surgeries: Section Respiratory Hx Respiratory Disorders: No Cardiovascular Hx Cardiac Disorders: No Neurological Hx Neurological Disorders: No Reproductive System Hx Reproductive Disorders: No Sexually Transmitted Disease: 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 Hx 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 Disorders: Yes 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 Disorders: UTI-Chronic Gastrointestinal Hx Gastrointestinal Disorders: No Musculoskeletal Hx Musculoskeletal Disorders: No Endocrine Hx Endocrine Disorders: No HEENT HX ENT Disorders: No Cancer Hx Cancer: No Psychosocial Hx Psychiatric Problems: Yes Behavioral Health Disorders: Anxiety, Bipolar, Depression Integumentary HX Skin/Integumentary Disorder: No Blood Transfusions Hx Blood Disorders: No Family Medical History Significant Family History: No Pertinent Family Hx Family Medial History: Cancer 19 MOTHER, Onset:s - 30 (uterine) Family history: Allergy 19 FATHER (seasonal allergies) Family history: Diabetes mellitus 19 FATHER (type 2) Family history: Hypertension 19 FATHER, Onset: - 40 Hereditary disease 19 FATHER (bipolar) 19 MOTHER (bipolar) History of drug abuse 19 MOTHER, Onset:s - Psychotic disorder 19 FATHER (bipolar) 19 MOTHER (br1fkttp suicidal) No Family History of: Abdominal aortic aneurysm [place]'s disease Alcoholism Aphasia Cancer of colon Cataract Chest pain Congenital heart disease Congestive heart failure Cystic fibrosis Dementia Dysphagia Family history: Alzheimer's disease Family history: Arthritis Family history: Asthma Family history: Breast disease Family history: Cardiovascular disease Family history: Coronary thrombosis Family history: Gastrointestinal disease Family history: Glaucoma Family history: Osteoporosis Family history: Thyroid disorder Headache Hearing loss Heart disease History of - anemia History of - disorder History of - respiratory disease Human immunodeficiency virus (HIV) seropositivity Hypercholesterolemia Infertile Kidney disease Malignant neoplasm of lung Myocardial infarction Parkinson's disease Prostate cancer Seizure disorder Stroke Tuberculosis Visual impairment Physical Exam Vital Signs Vital Sign - Last 12Hours 03/28/17 14:16 Temp 98.1 Pulse 70 Resp 16 B/P (MAP) 132/70 Pulse Ox 98 Capillary Refill : Less Than 3 Seconds General Appearance: moderate distress HEENT: normal ENT inspection Neck: full range of motion Cardiovascular: normal peripheral pulses, regular rate, rhythm, no edema, no gallop, no JVD, no murmur Respiratory: chest non-tender, lungs clear, normal breath sounds, no respiratory distress, no accessory muscle use Comments Obvious swelling of her left lateral malleolus. There is no discoloration at this time. There is pain to passive inversion of the foot Progress/Results/Core Measures Results/Orders My Orders Orders - LAURITA LOYOLA MD Ankle, Left, 3 Views (03/28/17 14:15) Vital Signs/I&O Vital Sign - Last 12Hours 03/28/17 14:16 Temp 98.1 Pulse 70 Resp 16 B/P (MAP) 132/70 Pulse Ox 98 Blood Pressure Mean: 90 Departure Communication Progress Notes The x-ray shows no evidence of fracture Impression Impression: Primary Impression: left ankle sprain/lateral ligament Disposition: 01 HOME, SELF-CARE Condition: Stable/Unchanged Departure-Patient Inst. Decision time for Depature: 14:51 Referrals: [facility] (PCP) Primary Care Physician Patient Instructions: Ankle Sprain (DC) Add. Discharge Instructions: All discharge instructions reviewed with patient and/or family. Voiced understanding. Ice ankle through tomorrow afternoon Elevate when possible Use the boot when up and about. It may be necessary to use this for 2-3 weeks. Ibuprofen or naproxen for pain Lortab for severe pain Scripts Hydrocodone/Acetaminophen ([place] 7.5-325 Tablet) 1 Each Tablet 1 EACH PO 4 times a day, #10 TAB Prov: LAURITA LOYOLA MD 03/28/17 LAURITA LOYOLA MD Mar 28, 2017 14:52
[2017-03-28 15:37] VITALS: BP 130/68
== END 2017-03-28 15:37 | disposition home or self-care (01) ==
LOC: EDUNIT# 14:04 → ER 14:05
DX: S93.402A Sprain of unspecified ligament of left ankle, initial encounter (principal); F31.9 Bipolar disorder, unspecified; F41.9 Anxiety disorder, unspecified; F17.210 Nicotine dependence, cigarettes, uncomplicated; Z97.5 Presence of (intrauterine) contraceptive device; W10.9XXA Fall (on) (from) unspecified stairs and steps, initial encounter; X50.0XXA Overexertion from strenuous movement or load, initial encounter
CPT/HCPCS: 73610; 99283

== ENCOUNTER 2017-05-10 22:57 | Emergency (ER) | payer MEDICAID ==
[~2017-05-10] VITALS: Ht 154.9 cm; Wt 116.6 kg
[~2017-05-10 22:57] MED LIST changes: +HYDR-756 PO
--- OUTSIDE RECORDS SUMMARY | 2017-05-10 23:03 | XMS REPORT ---
Author Author JEFF BARNETT [facility] [employer] Address [address] [place] [address] Care Team Providers Care Podiatrist Orthopedic Name Role Phone JEFF BARNETT Unavailable PROBLEMS Type Condition ICD9-CM Code [id number] Code Onset Dates Condition Status SNOMED Code Problem Dysthymia (or depressive neurosis) F34.1 Active 80722650 Problem Other abnormal glucose 790.29 Active 854255759 Problem Moderate single current episode of major depressive disorder F32.1 Active 96076123 Problem Morbid obesity due to excess calories E66.01 Active 811644961 Problem Irregular bleeding N92.6 Active 96633964 Problem Environmental allergies Z91.09 Active 435137591 Problem Sleep difficulties G47.9 Active 840145055 Problem Tension headache G44.209 Active 002028278 ALLERGIES Unknown Allergies SOCIAL HISTORY No smoking Hx information available PLAN OF CARE VITAL SIGNS MEDICATIONS Unknown Medications RESULTS No Results PROCEDURES Procedure Date Ordered Related Diagnosis Body Site URINE TEST Sep 16, 2016 IMMUNIZATIONS No Known Immunizations
--- OUTSIDE RECORDS SUMMARY | 2017-05-10 23:04 | XMS REPORT ---
Author Author IBIS ORTEGA [facility] Address [address] [place] [address] Care Team Providers Care Outsole Paraffiner Name Role Phone IBIS ORTEGA Unavailable PROBLEMS Type Condition ICD9-CM Code [id number] Code Onset Dates Condition Status SNOMED Code Problem Dysthymia (or depressive neurosis) F34.1 Active 81276444 Problem Other abnormal glucose 790.29 Active 044063847 Problem Moderate single current episode of major depressive disorder F32.1 Active 95508125 Problem Morbid obesity due to excess calories E66.01 Active 499297102 Problem Irregular bleeding N92.6 Active 64318722 Problem Environmental allergies Z91.09 Active 126056078 Problem Sleep difficulties G47.9 Active 791904777 Problem Tension headache G44.209 Active 139236979 ALLERGIES No Known Allergies SOCIAL HISTORY No smoking Hx information available PLAN OF CARE VITAL SIGNS MEDICATIONS No Known Medications RESULTS Name Result Date Reference Range TEST, URINE (IN HOUSE) 2016-09-15 RESULTS negative Lot # [id number] Control positive Exp date 03/24 PROCEDURES Procedure Date Ordered Related Diagnosis Body Site URINE TEST Sep 15, 2016 IMMUNIZATIONS No Known Immunizations
--- OUTSIDE RECORDS SUMMARY | 2017-05-10 23:06 | XMS REPORT ---
Author Author IBIS ORTEGA [facility] Address [address] [place] [address] Care Team Providers Care Motor Vehicle Compliance Analyst Name Role Phone IBIS ORTEGA Unavailable PROBLEMS Type Condition ICD9-CM Code BNC34-DM Code Onset Dates Condition Status SNOMED Code Problem Dysthymia (or depressive neurosis) F34.1 Active 81806305 Problem Other abnormal glucose 790.29 Active 098298763 Problem Moderate single current episode of major depressive disorder F32.1 Active 99127376 Problem Morbid obesity due to excess calories E66.01 Active 711516060 Problem Tension headache G44.209 Active 100296593 Problem Environmental allergies Z91.09 Active 162330211 Problem Sleep difficulties G47.9 Active 312386813 Problem Irregular bleeding N92.6 Active 63705189 ALLERGIES Unknown Allergies SOCIAL HISTORY No smoking Hx information available PLAN OF CARE VITAL SIGNS MEDICATIONS Unknown Medications RESULTS No Results PROCEDURES No Known procedures IMMUNIZATIONS No Known Immunizations
--- OUTSIDE RECORDS SUMMARY | 2017-05-10 23:07 | XMS REPORT ---
Author Author IBIS ORTEGA Organization [facility] Address [address] [place] [address] Care Team Providers Care Orthopedic Specialist Name Role Phone IBIS ORTEGA Unavailable PROBLEMS Type Condition ICD9-CM Code VLE22-AK Code Onset Dates Condition Status SNOMED Code Problem Dysthymia (or depressive neurosis) F34.1 Active 95158705 Problem Other abnormal glucose 790.29 Active 920591430 Problem Moderate single current episode of major depressive disorder F32.1 Active 86585305 Problem Morbid obesity due to excess calories E66.01 Active 053541155 Problem Tension headache G44.209 Active 748751494 Problem Environmental allergies Z91.09 Active 569442529 Problem Sleep difficulties G47.9 Active 710746127 Problem Irregular bleeding N92.6 Active 68215947 ALLERGIES Substance Reaction Event Type Date Status Penicillin V Potassium hives Drug Allergy Jul, Active Depo-provera arms, legs swell Drug Allergy Jul, Active Abilify tremors Drug Allergy Jul, Active SOCIAL HISTORY No smoking Hx information available PLAN OF CARE Activity Details Follow Up 2 Weeks Reason:CHM Irritability VITAL SIGNS Height 62 in 2016-07-25 Weight 236 lbs 2016-07-25 Temperature 98.3 degrees Fahrenheit 2016-07-25 Heart Rate 110 bpm 2016-07-25 Respiratory Rate 16 2016-07-25 BMI 43.16 kg/m2 2016-07-25 Blood pressure systolic 116 mmHg 2016-07-25 Blood pressure diastolic 74 mmHg 2016-07-25 MEDICATIONS Medication Instructions Dosage Frequency Start Date End Date Duration Status Zyrtec Allergy 10 mg Orally Once a day 1 tablet 24h Jul, Active Prozac 40 MG Orally Once a day 1 capsule in the morning 24h Active RESULTS No Results PROCEDURES Procedure Date Ordered Related Diagnosis Body Site Office Visit, Est Pt., Level 3 Jul 25, 2016 IMMUNIZATIONS No Known Immunizations
--- OUTSIDE RECORDS SUMMARY | 2017-05-10 23:07 | XMS REPORT ---
Author Author JENNIFER CARDENAS [facility] Address [address] [place] [address] Care Team Providers Care Configurator Name Role Phone JENNIFER CARDENAS Unavailable PROBLEMS Type Condition ICD9-CM Code QIJ04-NL Code Onset Dates Condition Status SNOMED Code Problem Dysthymia (or depressive neurosis) F34.1 Active 54783288 Problem Other abnormal glucose 790.29 Active 344468734 Problem Moderate single current episode of major depressive disorder F32.1 Active 17669513 Problem Morbid obesity due to excess calories E66.01 Active 590848925 Problem Irregular bleeding N92.6 Active 36241859 Problem Environmental allergies Z91.09 Active 153902585 Problem Sleep difficulties G47.9 Active 531492238 Problem Tension headache G44.209 Active 486707646 ALLERGIES Unknown Allergies SOCIAL HISTORY No smoking Hx information available PLAN OF CARE VITAL SIGNS MEDICATIONS Unknown Medications RESULTS No Results PROCEDURES No Known procedures IMMUNIZATIONS No Known Immunizations
[2017-05-10 23:46] VITALS: BP 150/98
== END 2017-05-11 00:50 | disposition left against medical advice (07) ==
LOC: EDUNIT# 22:57 → ER 22:59
DX: K92.0 Hematemesis (principal); R05 Cough; R50.9 Fever, unspecified
CPT/HCPCS: 99282

== ENCOUNTER 2017-11-19 23:46 | Emergency (ER) | payer MEDICARE, MEDICAID ==
[~2017-11-19] VITALS: Ht 154.9 cm; Wt 117.9 kg
--- OUTSIDE RECORDS SUMMARY | 2017-11-19 23:55 | XMS REPORT ---
Author Author BARTOLO [facility] Address [address] [place] [address] Care Team Providers Care Supervisor Shuttle Veneering Name Role Phone BARTOLO [facility] Unavailable PROBLEMS Type Condition ICD9-CM Code [id number] Code Onset Dates Condition Status SNOMED Code Problem Environmental allergies Z91.09 Active 215401419 Problem Tension headache G44.209 Active 731105066 Problem Irregular bleeding N92.6 Active 97721116 Problem Other abnormal glucose 790.29 Active 615469243 Problem Dysthymia (or depressive neurosis) F34.1 Active 69519152 Problem Vaginal bleeding N93.9 Active 101130916 Problem Helicobacter pylori [H. pylori] as the cause of diseases classified elsewhere B96.81 Active 047045084 Problem Morbid obesity due to excess calories E66.01 Active 570884570 Problem Sleep difficulties G47.9 Active 241809854 Problem Peptic ulcer, site unspecified, unspecified as acute or chronic, without hemorrhage or perforation K27.9 Active 2887561 Problem Moderate single current episode of major depressive disorder F32.1 Active 40470053 ALLERGIES Substance Reaction Event Type Date Status Penicillin V Potassium hives Drug Allergy Oct, Active Depo-provera arms, legs swell Drug Allergy Oct, Active Abilify tremors Drug Allergy Oct, Active SOCIAL HISTORY Never Assessed PLAN OF CARE Activity Details Follow Up prn Reason: VITAL SIGNS Height 62 in 2016-10-31 Weight 254.0 lbs 2016-10-31 Temperature 98.6 degrees Fahrenheit 2016-10-31 Heart Rate 109 bpm 2016-10-31 Respiratory Rate 16 2016-10-31 BMI 46.45 kg/m2 2016-10-31 Blood pressure systolic 110 mmHg 2016-10-31 Blood pressure diastolic 60 mmHg 2016-10-31 MEDICATIONS Medication Instructions Dosage Frequency Start Date End Date Duration Status Prozac 40 MG Orally Once a day 1 capsule in the morning 24h Active Zyrtec Allergy 10 mg Orally Once a day 1 tablet 24h Oct, Dec, 30 day(s) Active RESULTS Name Result Date Reference Range HCG, QUANTITATIVE 2016-10-31 hCG,Beta Subunit,Qnt,Serum 226 PROCEDURES Procedure Date Ordered Result Body Site ROUTINE VENIPUNCTURE 2016-10-31 N/A LAB NOT BILLED BY [facility] Oct 31, 2016 IMMUNIZATIONS No Known Immunizations MEDICAL (GENERAL) HISTORY Type Description Date Medical History bipolar disorder Medical History depression Medical History anxiety Medical History hx of suicide attempts Medical History 2016 Pathology of [place]. consistent with prod on conception no tissue identified Surgical History section 2013 Surgical History myringotomy with ventilating tube Hospitalization History surgeries, childbirth
--- OUTSIDE RECORDS SUMMARY | 2017-11-19 23:55 | XMS REPORT ---
Author Author JENNIFER CARDENAS [facility] Address [address] [place] [address] Care Team Providers Care Whale Fisherman Name Role Phone JENNIFER CARDENAS Unavailable PROBLEMS Type Condition ICD9-CM Code PYA03-CB Code Onset Dates Condition Status SNOMED Code Problem Dysthymia (or depressive neurosis) F34.1 Active 51000154 Problem Irregular bleeding N92.6 Active 36320282 Problem Environmental allergies Z91.09 Active 612527035 Problem Other abnormal glucose 790.29 Active 549373651 Problem Helicobacter pylori [H. pylori] as the cause of diseases classified elsewhere B96.81 Active 755766469 Problem Peptic ulcer, site unspecified, unspecified as acute or chronic, without hemorrhage or perforation K27.9 Active 1696873 Problem Sleep difficulties G47.9 Active 600543666 Problem Tension headache G44.209 Active 058124854 Problem Moderate single current episode of major depressive disorder F32.1 Active 89813236 Problem Morbid obesity due to excess calories E66.01 Active 287138963 ALLERGIES Unknown Allergies SOCIAL HISTORY No smoking Hx information available PLAN OF CARE VITAL SIGNS MEDICATIONS Unknown Medications RESULTS No Results PROCEDURES No Known procedures IMMUNIZATIONS No Known Immunizations
--- OUTSIDE RECORDS SUMMARY | 2017-11-19 23:55 | XMS REPORT ---
Author Author JENNIFER CARDENAS [facility] Address [address] [place] [address] Care Team Providers Care Textile Scrap Salvager Name Role Phone JNENIFER CARDENAS Unavailable PROBLEMS Type Condition ICD9-CM Code WCN70-HB Code Onset Dates Condition Status SNOMED Code Problem Dysthymia (or depressive neurosis) F34.1 Active 44392793 Problem Irregular bleeding N92.6 Active 94886965 Problem Environmental allergies Z91.09 Active 817274000 Problem Other abnormal glucose 790.29 Active 259501618 Problem Helicobacter pylori [H. pylori] as the cause of diseases classified elsewhere B96.81 Active 199085167 Problem Peptic ulcer, site unspecified, unspecified as acute or chronic, without hemorrhage or perforation K27.9 Active 5468421 Problem Sleep difficulties G47.9 Active 534733611 Problem Tension headache G44.209 Active 780943662 Problem Moderate single current episode of major depressive disorder F32.1 Active 12831296 Problem Morbid obesity due to excess calories E66.01 Active 714523979 ALLERGIES Unknown Allergies SOCIAL HISTORY No smoking Hx information available PLAN OF CARE VITAL SIGNS MEDICATIONS Unknown Medications RESULTS No Results PROCEDURES No Known procedures IMMUNIZATIONS No Known Immunizations
--- OUTSIDE RECORDS SUMMARY | 2017-11-19 23:55 | XMS REPORT ---
Author Author JENNIFER CARDENAS [facility] Address [address] [place] [address] Care Team Providers Care Director Digital Marketing Name Role Phone JENNIFER CARDENAS Unavailable PROBLEMS Type Condition ICD9-CM Code WSP33-VS Code Onset Dates Condition Status SNOMED Code Problem Dysthymia (or depressive neurosis) F34.1 Active 87714847 Problem Other abnormal glucose 790.29 Active 108279506 Problem Moderate single current episode of major depressive disorder F32.1 Active 34820107 Problem Morbid obesity due to excess calories E66.01 Active 144446555 Problem Irregular bleeding N92.6 Active 49458100 Problem Environmental allergies Z91.09 Active 324397916 Problem Sleep difficulties G47.9 Active 261720283 Problem Tension headache G44.209 Active 420900772 ALLERGIES Unknown Allergies SOCIAL HISTORY No smoking Hx information available PLAN OF CARE VITAL SIGNS MEDICATIONS Unknown Medications RESULTS No Results PROCEDURES No Known procedures IMMUNIZATIONS No Known Immunizations
--- OUTSIDE RECORDS SUMMARY | 2017-11-19 23:55 | XMS REPORT ---
Author Author IBIS ORTEGA Organization [facility] Address [address] [place] [address] Care Team Providers Care Rolling Attendant Name Role Phone IBIS ORTEGA Unavailable PROBLEMS Type Condition ICD9-CM Code SRN33-TL Code Onset Dates Condition Status SNOMED Code Problem Dysthymia (or depressive neurosis) F34.1 Active 72965218 Problem Irregular bleeding N92.6 Active 28626472 Problem Environmental allergies Z91.09 Active 547267500 Problem Other abnormal glucose 790.29 Active 117482750 Problem Helicobacter pylori [H. pylori] as the cause of diseases classified elsewhere B96.81 Active 105956024 Problem Peptic ulcer, site unspecified, unspecified as acute or chronic, without hemorrhage or perforation K27.9 Active 0946379 Problem Sleep difficulties G47.9 Active 561594520 Problem Tension headache G44.209 Active 657365992 Problem Moderate single current episode of major depressive disorder F32.1 Active 77998271 Problem Morbid obesity due to excess calories E66.01 Active 162234794 ALLERGIES No Information SOCIAL HISTORY Never Assessed PLAN OF CARE VITAL SIGNS MEDICATIONS Medication Instructions Dosage Frequency Start Date End Date Duration Status Prozac 20 mg Orally Once a day 1 capsule in the morning 24h Oct, 0 days Active RESULTS Name Result Date Reference Range HCG, QUANTITATIVE 2016-10-16 hCG,Beta Subunit,Qnt,Serum 633 PROCEDURES Procedure Date Ordered Result Body Site LAB NOT BILLED BY [facility] Oct 16, 2016 VENIPUNCT, ROUTINE* Oct 16, 2016 IMMUNIZATIONS No Known Immunizations MEDICAL (GENERAL) HISTORY Type Description Date Medical History bipolar disorder Medical History depression Medical History anxiety Medical History hx of suicide attempts Medical History 2016 Pathology of [place]. consistent with prod on conception no tissue identified Surgical History section 2014 Surgical History myringotomy with ventilating tube Hospitalization History surgeries, childbirth
--- OUTSIDE RECORDS SUMMARY | 2017-11-19 23:56 | XMS REPORT ---
Author Author IBIS ORTEGA Organization [facility] Address [address] [place] [address] Care Team Providers Care Director Personal Name Role Phone IBIS ORTEGA Unavailable PROBLEMS Type Condition ICD9-CM Code TAP17-KU Code Onset Dates Condition Status SNOMED Code Problem Environmental allergies Z91.09 Active 124087320 Problem Tension headache G44.209 Active 408306228 Problem Irregular bleeding N92.6 Active 72276033 Problem Other abnormal glucose 790.29 Active 595727531 Problem Dysthymia (or depressive neurosis) F34.1 Active 07484400 Problem Vaginal bleeding N93.9 Active 602381749 Problem Helicobacter pylori [H. pylori] as the cause of diseases classified elsewhere B96.81 Active 308592559 Problem Morbid obesity due to excess calories E66.01 Active 153809406 Problem Sleep difficulties G47.9 Active 896982885 Problem Peptic ulcer, site unspecified, unspecified as acute or chronic, without hemorrhage or perforation K27.9 Active 6706150 Problem Moderate single current episode of major depressive disorder F32.1 Active 97988752 ALLERGIES No Information SOCIAL HISTORY Never Assessed PLAN OF CARE VITAL SIGNS MEDICATIONS Unknown Medications RESULTS No Results PROCEDURES No Known procedures IMMUNIZATIONS No Known Immunizations MEDICAL (GENERAL) HISTORY Type Description Date Medical History bipolar disorder Medical History depression Medical History anxiety Medical History hx of suicide attempts Medical History 2016 Pathology of [place]. consistent with prod on conception no tissue identified Surgical History section 2014 Surgical History myringotomy with ventilating tube Hospitalization History surgeries, childbirth
--- OUTSIDE RECORDS SUMMARY | 2017-11-19 23:56 | XMS REPORT ---
Author Author IBIS ORTEGA [facility] Address [address] [place] [address] Care Team Providers Care Emissions Testing Technician Name Role Phone IBIS ORTEGA Unavailable PROBLEMS Type Condition ICD9-CM Code JMA64-EK Code Onset Dates Condition Status SNOMED Code Problem Environmental allergies Z91.09 Active 749789182 Problem Tension headache G44.209 Active 707232434 Problem Irregular bleeding N92.6 Active 04729475 Problem Other abnormal glucose 790.29 Active 145185343 Problem Dysthymia (or depressive neurosis) F34.1 Active 59926499 Problem Vaginal bleeding N93.9 Active 376660045 Problem Helicobacter pylori [H. pylori] as the cause of diseases classified elsewhere B96.81 Active 464098631 Problem Morbid obesity due to excess calories E66.01 Active 810806931 Problem Sleep difficulties G47.9 Active 903347648 Problem Peptic ulcer, site unspecified, unspecified as acute or chronic, without hemorrhage or perforation K27.9 Active 1315927 Problem Moderate single current episode of major depressive disorder F32.1 Active 43601345 ALLERGIES Substance Reaction Event Type Date Status Penicillin V Potassium hives Drug Allergy January, Active Depo-provera wt gain Drug Allergy January, Active Abilify tremors Drug Allergy January, Active SOCIAL HISTORY Never Assessed PLAN OF CARE Activity Details Follow Up 1 Months Reason:CHM dysthymia VITAL SIGNS Height 62 in 2017-01-21 Weight 253.4 lbs 2017-01-21 Temperature 98.2 degrees Fahrenheit 2017-01-21 Heart Rate 94 bpm 2017-01-21 Respiratory Rate 16 2017-01-21 BMI 46.34 kg/m2 2017-01-21 Blood pressure systolic 110 mmHg 2017-01-21 Blood pressure diastolic 76 mmHg 2017-01-21 MEDICATIONS Medication Instructions Dosage Frequency Start Date End Date Duration Status Amitriptyline HCl 25 MG Orally Once a day at bedtime 1 tablet January, 30 day(s) Active ProAir HFA 108 (90 Base) MCG/ACT Inhalation every 4 hrs 2 puffs as needed 4h January, 0 days Active DiphenhydrAMINE HCl 25 MG Orally every 8 hrs take with tylenol and motrin for headache 1 capsule as needed Dec, 0 days Active Depo-Provera 150 MG/ML Intramuscular q 3 months 1 ml Dec, days Active Azithromycin 250 MG Orally Once a day 2 tablets on the first day, then 1 tablet daily for 4 days 24h January, January, 5 day(s) Active Prozac 40 mg Orally Once a day 1 capsule 24h 0 days Active RESULTS No Results PROCEDURES No Known procedures [...]
--- OUTSIDE RECORDS SUMMARY | 2017-11-19 23:56 | XMS REPORT ---
Author Author JENNIFER CARDENAS [facility] Address [address] [place] [address] Care Team Providers Care Decay Control Operator Name Role Phone RONALD JENNIFER Unavailable PROBLEMS Type Condition ICD9-CM Code AHM94-QS Code Onset Dates Condition Status SNOMED Code Problem Environmental allergies Z91.09 Active 121047343 Problem Tension headache G44.209 Active 815502655 Problem Irregular bleeding N92.6 Active 11323718 Problem Other abnormal glucose 790.29 Active 880240260 Problem Dysthymia (or depressive neurosis) F34.1 Active 87595642 Problem Vaginal bleeding N93.9 Active 237256376 Problem Helicobacter pylori [H. pylori] as the cause of diseases classified elsewhere B96.81 Active 142069155 Problem Morbid obesity due to excess calories E66.01 Active 845063869 Problem Sleep difficulties G47.9 Active 263270269 Problem Peptic ulcer, site unspecified, unspecified as acute or chronic, without hemorrhage or perforation K27.9 Active 3481082 Problem Moderate single current episode of major depressive disorder F32.1 Active 22687200 ALLERGIES No Information SOCIAL HISTORY Never Assessed [...]
--- OUTSIDE RECORDS SUMMARY | 2017-11-19 23:56 | XMS REPORT ---
Author Author IBIS ORTEGA Organization [facility] Address [address] [place] [address] Care Team Providers Care Healthcare Social Worker Name Role Phone IBIS ORTEGA Unavailable PROBLEMS Type Condition ICD9-CM Code RYO20-HG Code Onset Dates Condition Status SNOMED Code Problem Environmental allergies Z91.09 Active 265791903 Problem Tension headache G44.209 Active 867292171 Problem Irregular bleeding N92.6 Active 07754338 Problem Other abnormal glucose 790.29 Active 413248569 Problem Dysthymia (or depressive neurosis) F34.1 Active 97386028 Problem Vaginal bleeding N93.9 Active 340377546 Problem Helicobacter pylori [H. pylori] as the cause of diseases classified elsewhere B96.81 Active 089682600 Problem Morbid obesity due to excess calories E66.01 Active 613893244 Problem Sleep difficulties G47.9 Active 516231160 Problem Peptic ulcer, site unspecified, unspecified as acute or chronic, without hemorrhage or perforation K27.9 Active 9210828 Problem Moderate single current episode of major depressive disorder F32.1 Active 54542606 ALLERGIES No Information SOCIAL HISTORY Never Assessed [...]
--- OUTSIDE RECORDS SUMMARY | 2017-11-19 23:57 | XMS REPORT ---
Author Author IBIS ORTEGA [facility] Address [address] [place] [address] Care Team Providers Care Pharmaceutical Physician Name Role Phone IBIS ORTEGA Unavailable PROBLEMS Type Condition ICD9-CM Code SDT11-YL Code Onset Dates Condition Status SNOMED Code Problem Dysthymia (or depressive neurosis) F34.1 Active 11071496 Problem Irregular bleeding N92.6 Active 95934877 Problem Environmental allergies Z91.09 Active 281048499 Problem Other abnormal glucose 790.29 Active 451570412 Problem Helicobacter pylori [H. pylori] as the cause of diseases classified elsewhere B96.81 Active 681406847 Problem Peptic ulcer, site unspecified, unspecified as acute or chronic, without hemorrhage or perforation K27.9 Active 8414965 Problem Sleep difficulties G47.9 Active 304630545 Problem Tension headache G44.209 Active 494734237 Problem Moderate single current episode of major depressive disorder F32.1 Active 53254192 Problem Morbid obesity due to excess calories E66.01 Active 740326404 ALLERGIES Unknown Allergies SOCIAL HISTORY No smoking Hx information available PLAN OF CARE VITAL SIGNS MEDICATIONS Unknown Medications RESULTS No Results PROCEDURES No Known procedures IMMUNIZATIONS No Known Immunizations
--- OUTSIDE RECORDS SUMMARY | 2017-11-19 23:57 | XMS REPORT ---
Author Author JENNIFER CARDENAS [facility] Address [address] [place] [address] Care Team Providers Care Digital Strategy Director Name Role Phone JENNIFER CARDENAS Unavailable PROBLEMS Type Condition ICD9-CM Code VEI16-TT Code Onset Dates Condition Status SNOMED Code Problem Dysthymia (or depressive neurosis) F34.1 Active 35629406 Problem Irregular bleeding N92.6 Active 88035608 Problem Environmental allergies Z91.09 Active 082586804 Problem Other abnormal glucose 790.29 Active 418687001 Problem Helicobacter pylori [H. pylori] as the cause of diseases classified elsewhere B96.81 Active 856841626 Problem Peptic ulcer, site unspecified, unspecified as acute or chronic, without hemorrhage or perforation K27.9 Active 5044181 Problem Sleep difficulties G47.9 Active 313481548 Problem Tension headache G44.209 Active 571028481 Problem Moderate single current episode of major depressive disorder F32.1 Active 32442089 Problem Morbid obesity due to excess calories E66.01 Active 565753818 ALLERGIES Unknown Allergies SOCIAL HISTORY No smoking Hx information available PLAN OF CARE VITAL SIGNS MEDICATIONS Unknown Medications RESULTS No Results PROCEDURES No Known procedures IMMUNIZATIONS No Known Immunizations
--- OUTSIDE RECORDS SUMMARY | 2017-11-19 23:57 | XMS REPORT ---
Author Author BARTOLO SIU [facility] Address [address] [place] [address] Care Team Providers Care Nurse Emergency Name Role Phone BARTOLO SIU Unavailable PROBLEMS Type Condition ICD9-CM Code OJA93-PH Code Onset Dates Condition Status SNOMED Code Problem Dysthymia (or depressive neurosis) F34.1 Active 96013362 Problem Irregular bleeding N92.6 Active 08256684 Problem Environmental allergies Z91.09 Active 614905424 Problem Other abnormal glucose 790.29 Active 319619024 Problem Helicobacter pylori [H. pylori] as the cause of diseases classified elsewhere B96.81 Active 564704610 Problem Peptic ulcer, site unspecified, unspecified as acute or chronic, without hemorrhage or perforation K27.9 Active 9597930 Problem Sleep difficulties G47.9 Active 957907378 Problem Tension headache G44.209 Active 264643719 Problem Moderate single current episode of major depressive disorder F32.1 Active 34832459 Problem Morbid obesity due to excess calories E66.01 Active 348771171 ALLERGIES Substance Reaction Event Type Date Status Penicillin V Potassium hives Drug Allergy Oct, Active Depo-provera arms, legs swell Drug Allergy Oct, Active Abilify tremors Drug Allergy Oct, Active SOCIAL HISTORY No smoking Hx information available PLAN OF CARE Activity Details Follow Up 1 week for lab Reason: VITAL SIGNS Height 62 in 2016-10-09 Weight 211.6 lbs 2016-10-09 Temperature 98.0 degrees Fahrenheit 2016-10-09 Heart Rate 88 bpm 2016-10-09 Respiratory Rate 16 2016-10-09 BMI 38.70 kg/m2 2016-10-09 Blood pressure systolic 124 mmHg 2016-10-09 Blood pressure diastolic 70 mmHg 2016-10-09 MEDICATIONS Medication Instructions Dosage Frequency Start Date End Date Duration Status Zyrtec Allergy 10 mg Orally Once a day 1 tablet 24h Jul, Active Prozac 40 MG Orally Once a day 1 capsule in the morning 24h Active RESULTS Name Result Date Reference Range TEST, URINE (IN HOUSE) 2016-10-09 RESULTS positive Lot # [id number] Control + Exp date 04/06/2018 HCG, QUANTITATIVE 2016-10-09 hCG,Beta Subunit,Qnt,Serum 808 PROCEDURES Procedure Date Ordered Related Diagnosis Body Site VENIPUNCT, ROUTINE* Oct 09, 2016 URINE TEST Oct 09, 2016 Office Visit, Est Pt., Level 3 Oct 09, 2016 IMMUNIZATIONS No Known Immunizations
--- OUTSIDE RECORDS SUMMARY | 2017-11-19 23:57 | XMS REPORT ---
Author Author JENNIFER CARDENAS [facility] Address [address] [place] [address] Care Team Providers Care Student Assistant Name Role Phone RONALD JENNIFER Unavailable PROBLEMS Type Condition ICD9-CM Code OYW19-PX Code Onset Dates Condition Status SNOMED Code Problem Dysthymia (or depressive neurosis) F34.1 Active 61558984 Problem Irregular bleeding N92.6 Active 40945750 Problem Environmental allergies Z91.09 Active 177536386 Problem Other abnormal glucose 790.29 Active 999169076 Problem Helicobacter pylori [H. pylori] as the cause of diseases classified elsewhere B96.81 Active 855609075 Problem Peptic ulcer, site unspecified, unspecified as acute or chronic, without hemorrhage or perforation K27.9 Active 7580247 Problem Sleep difficulties G47.9 Active 602526798 Problem Tension headache G44.209 Active 148950805 Problem Moderate single current episode of major depressive disorder F32.1 Active 13224448 Problem Morbid obesity due to excess calories E66.01 Active 084016136 ALLERGIES No Information SOCIAL HISTORY Never Assessed PLAN OF CARE VITAL SIGNS MEDICATIONS No Known Medications RESULTS No Results PROCEDURES No Known [...]
--- OUTSIDE RECORDS SUMMARY | 2017-11-19 23:57 | XMS REPORT ---
Author Author IBIS ORTEGA Organization [facility] Address [address] [place] [address] Care Team Providers Care Cement Worker Name Role Phone IBIS ORTEGA Unavailable PROBLEMS Type Condition ICD9-CM Code AAR91-JC Code Onset Dates Condition Status SNOMED Code Problem Environmental allergies Z91.09 Active 218488251 Problem Tension headache G44.209 Active 267761394 Problem Irregular bleeding N92.6 Active 73435137 Problem Other abnormal glucose 790.29 Active 891252949 Problem Dysthymia (or depressive neurosis) F34.1 Active 53267192 Problem Vaginal bleeding N93.9 Active 904544329 Problem Helicobacter pylori [H. pylori] as the cause of diseases classified elsewhere B96.81 Active 734833673 Problem Morbid obesity due to excess calories E66.01 Active 235812881 Problem Sleep difficulties G47.9 Active 641508604 Problem Peptic ulcer, site unspecified, unspecified as acute or chronic, without hemorrhage or perforation K27.9 Active 9781996 Problem Moderate single current episode of major depressive disorder F32.1 Active 84025026 ALLERGIES No Information SOCIAL HISTORY Never Assessed [...]
--- OUTSIDE RECORDS SUMMARY | 2017-11-19 23:58 | XMS REPORT ---
Author Author IBIS ORTEGA Organization [facility] Address [address] [place] [address] Care Team Providers Care Brine Well Operator Name Role Phone BIIS ORTEGA Unavailable PROBLEMS Type Condition ICD9-CM Code GAJ62-HX Code Onset Dates Condition Status SNOMED Code Problem Environmental allergies Z91.09 Active 979843081 Problem Tension headache G44.209 Active 231345933 Problem Irregular bleeding N92.6 Active 30074600 Problem Other abnormal glucose 790.29 Active 558526275 Problem Dysthymia (or depressive neurosis) F34.1 Active 85859000 Problem Vaginal bleeding N93.9 Active 379201104 Problem Helicobacter pylori [H. pylori] as the cause of diseases classified elsewhere B96.81 Active 111713250 Problem Morbid obesity due to excess calories E66.01 Active 372087317 Problem Sleep difficulties G47.9 Active 008529609 Problem Peptic ulcer, site unspecified, unspecified as acute or chronic, without hemorrhage or perforation K27.9 Active 8215977 Problem Moderate single current episode of major depressive disorder F32.1 Active 32399832 ALLERGIES No Information SOCIAL HISTORY Never Assessed [...]
--- OUTSIDE RECORDS SUMMARY | 2017-11-19 23:58 | XMS REPORT ---
Author Author IBIS ORTEGA [facility] Address [address] [place] [address] Care Team Providers Care Abe Teacher Name Role Phone IBIS ORTEGA Unavailable PROBLEMS Type Condition ICD9-CM Code OVM48-HD Code Onset Dates Condition Status SNOMED Code Problem Dysthymia (or depressive neurosis) F34.1 Active 91422309 Problem Irregular bleeding N92.6 Active 05790235 Problem Environmental allergies Z91.09 Active 516987162 Problem Other abnormal glucose 790.29 Active 692793929 Problem Helicobacter pylori [H. pylori] as the cause of diseases classified elsewhere B96.81 Active 914442701 Problem Peptic ulcer, site unspecified, unspecified as acute or chronic, without hemorrhage or perforation K27.9 Active 2613018 Problem Sleep difficulties G47.9 Active 083775927 Problem Tension headache G44.209 Active 845327683 Problem Moderate single current episode of major depressive disorder F32.1 Active 93568578 Problem Morbid obesity due to excess calories E66.01 Active 735932917 ALLERGIES Unknown Allergies SOCIAL HISTORY No smoking Hx information available PLAN OF CARE VITAL SIGNS MEDICATIONS Unknown Medications RESULTS Name Result Date Reference Range TEST, URINE (IN HOUSE) 2016-10-09 RESULTS positive Lot # [id number] Control + Exp date 03/2018 PROCEDURES Procedure Date Ordered Related Diagnosis Body Site URINE TEST Sep 16, 2016 IMMUNIZATIONS No Known Immunizations
--- OUTSIDE RECORDS SUMMARY | 2017-11-19 23:58 | XMS REPORT ---
Author Author JENNIFER CARDENAS [facility] Address [address] [place] [address] Care Team Providers Care Wood Floor Layer Name Role Phone JENNIFER CARDENAS Unavailable PROBLEMS Type Condition ICD9-CM Code LAA52-VX Code Onset Dates Condition Status SNOMED Code Problem Dysthymia (or depressive neurosis) F34.1 Active 54639322 Problem Irregular bleeding N92.6 Active 79404583 Problem Environmental allergies Z91.09 Active 011877862 Problem Other abnormal glucose 790.29 Active 596202850 Problem Helicobacter pylori [H. pylori] as the cause of diseases classified elsewhere B96.81 Active 189331517 Problem Peptic ulcer, site unspecified, unspecified as acute or chronic, without hemorrhage or perforation K27.9 Active 1123116 Problem Sleep difficulties G47.9 Active 834541478 Problem Tension headache G44.209 Active 039015381 Problem Moderate single current episode of major depressive disorder F32.1 Active 87489049 Problem Morbid obesity due to excess calories E66.01 Active 112549269 ALLERGIES Unknown Allergies SOCIAL HISTORY No smoking Hx information available PLAN OF CARE VITAL SIGNS MEDICATIONS Unknown Medications RESULTS No Results PROCEDURES No Known procedures IMMUNIZATIONS No Known Immunizations
--- OUTSIDE RECORDS SUMMARY | 2017-11-19 23:58 | XMS REPORT ---
Author Author JENNIFER CARDENAS [facility] Address [address] [place] [address] Care Team Providers Care Mill Control Operator Name Role Phone RONALD JENNIFER Unavailable PROBLEMS Type Condition ICD9-CM Code ILC32-OV Code Onset Dates Condition Status SNOMED Code Problem Dysthymia (or depressive neurosis) F34.1 Active 15763462 Problem Irregular bleeding N92.6 Active 23071704 Problem Environmental allergies Z91.09 Active 032414276 Problem Other abnormal glucose 790.29 Active 598383355 Problem Helicobacter pylori [H. pylori] as the cause of diseases classified elsewhere B96.81 Active 100280279 Problem Peptic ulcer, site unspecified, unspecified as acute or chronic, without hemorrhage or perforation K27.9 Active 6379673 Problem Sleep difficulties G47.9 Active 029863637 Problem Tension headache G44.209 Active 992626999 Problem Moderate single current episode of major depressive disorder F32.1 Active 00709620 Problem Morbid obesity due to excess calories E66.01 Active 083110801 ALLERGIES No Information SOCIAL HISTORY Never Assessed [...]
--- OUTSIDE RECORDS SUMMARY | 2017-11-19 23:58 | XMS REPORT ---
Author Author JENNIFER CARDENAS [facility] Address [address] [place] [address] Care Team Providers Care Rural Sociologist Name Role Phone JENNIFER CARDENAS Unavailable PROBLEMS Type Condition ICD9-CM Code [id number] Code Onset Dates Condition Status SNOMED Code Problem Dysthymia (or depressive neurosis) F34.1 Active 25285909 Problem Irregular bleeding N92.6 Active 58798229 Problem Environmental allergies Z91.09 Active 864018815 Problem Other abnormal glucose 790.29 Active 955252582 Problem Helicobacter pylori [H. pylori] as the cause of diseases classified elsewhere B96.81 Active 542789640 Problem Peptic ulcer, site unspecified, unspecified as acute or chronic, without hemorrhage or perforation K27.9 Active 4491252 Problem Sleep difficulties G47.9 Active 576077186 Problem Tension headache G44.209 Active 791737958 Problem Moderate single current episode of major depressive disorder F32.1 Active 55973785 Problem Morbid obesity due to excess calories E66.01 Active 186970686 ALLERGIES Unknown Allergies SOCIAL HISTORY No smoking Hx information available PLAN OF CARE VITAL SIGNS MEDICATIONS Unknown Medications RESULTS No Results PROCEDURES No Known procedures IMMUNIZATIONS No Known Immunizations
--- OUTSIDE RECORDS SUMMARY | 2017-11-19 23:59 | XMS REPORT ---
Author Author IBIS ORTEGA [facility] Address [address] [place] [address] Care Team Providers Care Floor Broker Name Role Phone IBIS ORTEGA Unavailable PROBLEMS Type Condition ICD9-CM Code [id number] Code Onset Dates Condition Status SNOMED Code Problem Dysthymia (or depressive neurosis) F34.1 Active 07981799 Problem Irregular bleeding N92.6 Active 70651188 Problem Environmental allergies Z91.09 Active 398791001 Problem Other abnormal glucose 790.29 Active 713077818 Problem Helicobacter pylori [H. pylori] as the cause of diseases classified elsewhere B96.81 Active 609968552 Problem Peptic ulcer, site unspecified, unspecified as acute or chronic, without hemorrhage or perforation K27.9 Active 1915937 Problem Sleep difficulties G47.9 Active 813101000 Problem Tension headache G44.209 Active 784863545 Problem Moderate single current episode of major depressive disorder F32.1 Active 18909422 Problem Morbid obesity due to excess calories E66.01 Active 874804358 ALLERGIES Substance Reaction Event Type Date Status Penicillin V Potassium hives Drug Allergy Sep, Active Depo-provera arms, legs swell Drug Allergy Sep, Active Abilify tremors Drug Allergy Sep, Active SOCIAL HISTORY No smoking Hx information available PLAN OF CARE Activity Details Follow Up 2 - 3 Days Reason:if rash not improving VITAL SIGNS Height 62 in 2016-09-09 Weight 247 lbs 2016-09-09 Temperature 97.8 degrees Fahrenheit 2016-09-09 Heart Rate 88 bpm 2016-09-09 Respiratory Rate 16 2016-09-09 BMI 45.17 kg/m2 2016-09-09 Blood pressure systolic 120 mmHg 2016-09-09 Blood pressure diastolic 68 mmHg 2016-09-09 MEDICATIONS Medication Instructions Dosage Frequency Start Date End Date Duration Status Nystatin-Triamcinolone 758684-2.1 UNIT/GM Externally Twice a day 1 application to affected area 12h Sep, Sep, 14 days Active Zyrtec Allergy 10 mg Orally Once a day 1 tablet 24h Jul, Active Prozac 40 MG Orally Once a day 1 capsule in the morning 24h Active Diflucan 150 MG Orally take 1 tablet today and 1 tablet agin in 3 days 1 tablet Sep, Sep, 0 days Active RESULTS Name Result Date Reference Range TEST, URINE (IN HOUSE) 2016-09-09 RESULTS neg Lot # [id number] Control + Exp date 04/06/2018 PROCEDURES Procedure Date Ordered Related Diagnosis Body Site URINE TEST Sep 09, 2016 Office Visit, Est Pt., Level 3 Sep 09, 2016 IMMUNIZATIONS No Known Immunizations
--- OUTSIDE RECORDS SUMMARY | 2017-11-20 | XMS REPORT ---
Author Author IBIS ORTEGA Organization [facility] Address [address] [place] [address] Care Team Providers Care Auto Body Detailer Name Role Phone IBIS ORTEGA Unavailable PROBLEMS Type Condition ICD9-CM Code VVV16-GJ Code Onset Dates Condition Status SNOMED Code Problem Environmental allergies Z91.09 Active 507969560 Problem Tension headache G44.209 Active 431830055 Problem Irregular bleeding N92.6 Active 48301416 Problem Other abnormal glucose 790.29 Active 179102084 Problem Dysthymia (or depressive neurosis) F34.1 Active 80841190 Problem Vaginal bleeding N93.9 Active 098058236 Problem Helicobacter pylori [H. pylori] as the cause of diseases classified elsewhere B96.81 Active 711415409 Problem Morbid obesity due to excess calories E66.01 Active 174801118 Problem Sleep difficulties G47.9 Active 128205416 Problem Peptic ulcer, site unspecified, unspecified as acute or chronic, without hemorrhage or perforation K27.9 Active 1704189 Problem Moderate single current episode of major depressive disorder F32.1 Active 81566741 ALLERGIES No Information SOCIAL HISTORY Never Assessed [...]
--- OUTSIDE RECORDS SUMMARY | 2017-11-20 | XMS REPORT ---
Author Author IBIS ORTEGA [facility] Address [address] [place] [address] Care Team Providers Care Drafter Heating And Ventilating Name Role Phone IBIS ORTEGA Unavailable PROBLEMS Type Condition ICD9-CM Code ERR69-HX Code Onset Dates Condition Status SNOMED Code Problem Dysthymia (or depressive neurosis) F34.1 Active 65970263 Problem Other abnormal glucose 790.29 Active 810528184 Problem Moderate single current episode of major depressive disorder F32.1 Active 11503717 Problem Morbid obesity due to excess calories E66.01 Active 343972369 Problem Irregular bleeding N92.6 Active 18328090 Problem Environmental allergies Z91.09 Active 830852782 Problem Sleep difficulties G47.9 Active 940756822 Problem Tension headache G44.209 Active 373785264 ALLERGIES Unknown Allergies SOCIAL HISTORY No smoking Hx information available PLAN OF CARE VITAL SIGNS MEDICATIONS Unknown Medications RESULTS No Results PROCEDURES No Known procedures IMMUNIZATIONS No Known Immunizations
--- OUTSIDE RECORDS SUMMARY | 2017-11-20 | XMS REPORT ---
Author Author JENNIFER CARDENAS [facility] Address [address] [place] [address] Care Team Providers Care Tracer Clerk Name Role Phone JENNIFER CARDENAS Unavailable PROBLEMS Type Condition ICD9-CM Code FFP66-NB Code Onset Dates Condition Status SNOMED Code Problem Dysthymia (or depressive neurosis) F34.1 Active 47124133 Problem Other abnormal glucose 790.29 Active 791375281 Problem Moderate single current episode of major depressive disorder F32.1 Active 28756763 Problem Morbid obesity due to excess calories E66.01 Active 791493379 Problem Irregular bleeding N92.6 Active 12517185 Problem Environmental allergies Z91.09 Active 392056210 Problem Sleep difficulties G47.9 Active 705511956 Problem Tension headache G44.209 Active 411125298 ALLERGIES Unknown Allergies SOCIAL HISTORY No smoking Hx information available PLAN OF CARE VITAL SIGNS MEDICATIONS Unknown Medications RESULTS No Results PROCEDURES No Known procedures IMMUNIZATIONS No Known Immunizations
--- OUTSIDE RECORDS SUMMARY | 2017-11-20 | XMS REPORT ---
Author Author IBIS ORTEGA Organization [facility] Address [address] [place] [address] Care Team Providers Care Assembler And Tester Electronics Name Role Phone IBIS ORTEGA Unavailable PROBLEMS Type Condition ICD9-CM Code JFG09-QX Code Onset Dates Condition Status SNOMED Code Problem Environmental allergies Z91.09 Active 031203948 Problem Tension headache G44.209 Active 876697621 Problem Irregular bleeding N92.6 Active 00736103 Problem Other abnormal glucose 790.29 Active 448902959 Problem Dysthymia (or depressive neurosis) F34.1 Active 04475255 Problem Vaginal bleeding N93.9 Active 072357018 Problem Helicobacter pylori [H. pylori] as the cause of diseases classified elsewhere B96.81 Active 082499027 Problem Morbid obesity due to excess calories E66.01 Active 267616905 Problem Sleep difficulties G47.9 Active 555786819 Problem Peptic ulcer, site unspecified, unspecified as acute or chronic, without hemorrhage or perforation K27.9 Active 2068237 Problem Moderate single current episode of major depressive disorder F32.1 Active 30422358 ALLERGIES No Information SOCIAL HISTORY Never Assessed [...]
--- OUTSIDE RECORDS SUMMARY | 2017-11-20 00:01 | XMS REPORT ---
Author Author JENNIFER CARDENAS [facility] Address [address] [place] [address] Care Team Providers Care Loan Review Officer Name Role Phone JENNIFER CARDENAS Unavailable PROBLEMS Type Condition ICD9-CM Code UQS23-YS Code Onset Dates Condition Status SNOMED Code Problem Dysthymia (or depressive neurosis) F34.1 Active 72788346 Problem Irregular bleeding N92.6 Active 34847849 Problem Environmental allergies Z91.09 Active 814369231 Problem Other abnormal glucose 790.29 Active 478298307 Problem Helicobacter pylori [H. pylori] as the cause of diseases classified elsewhere B96.81 Active 596365899 Problem Peptic ulcer, site unspecified, unspecified as acute or chronic, without hemorrhage or perforation K27.9 Active 6806535 Problem Sleep difficulties G47.9 Active 991869285 Problem Tension headache G44.209 Active 594631045 Problem Moderate single current episode of major depressive disorder F32.1 Active 39176785 Problem Morbid obesity due to excess calories E66.01 Active 212527695 ALLERGIES Unknown Allergies SOCIAL HISTORY No smoking Hx information available PLAN OF CARE VITAL SIGNS MEDICATIONS Unknown Medications RESULTS No Results PROCEDURES No Known procedures IMMUNIZATIONS No Known Immunizations
--- OUTSIDE RECORDS SUMMARY | 2017-11-20 00:01 | XMS REPORT ---
Author Author IBIS ORTEGA Organization [facility] Address [address] [place] [address] Care Team Providers Care Med Surg Nurse Name Role Phone IBIS ORTEGA Unavailable PROBLEMS Type Condition ICD9-CM Code OCK77-KH Code Onset Dates Condition Status SNOMED Code Problem Environmental allergies Z91.09 Active 728471638 Problem Tension headache G44.209 Active 865903283 Problem Irregular bleeding N92.6 Active 38347530 Problem Other abnormal glucose 790.29 Active 290031147 Problem Dysthymia (or depressive neurosis) F34.1 Active 05933876 Problem Vaginal bleeding N93.9 Active 115007902 Problem Helicobacter pylori [H. pylori] as the cause of diseases classified elsewhere B96.81 Active 916933393 Problem Morbid obesity due to excess calories E66.01 Active 632724146 Problem Sleep difficulties G47.9 Active 128557352 Problem Peptic ulcer, site unspecified, unspecified as acute or chronic, without hemorrhage or perforation K27.9 Active 5549197 Problem Moderate single current episode of major depressive disorder F32.1 Active 12966943 ALLERGIES No Information SOCIAL HISTORY Never Assessed [...]
[2017-11-20] MEDS ORDERED: ONDA8TAB13 (00:16)
[2017-11-20] MEDS ORDERED: PNV1TABL65 (00:16)
[2017-11-20] MEDS ORDERED: FLUO20CA25 (00:16)
[2017-11-20 00:37] LABS: BASOPHILS % (AUTO) 0 % (0-10); EOSINOPHILS # (AUTO) 0.1 10^3/uL (0.0-0.3); EOSINOPHILS % (AUTO) 1 % (0-10); HEMATOCRIT 39 % (35-52); HEMOGLOBIN 13.8 G/DL (11.5-16.0); LYMPHOCYTES # (AUTO) 3.1 X 10^3 (1.0-4.0); LYMPHOCYTES % (AUTO) 22 % (12-44); MEAN CORPUSCULAR HEMOGLOBIN 30 PG (25-34); MEAN CORPUSCULAR HGB CONC 36 G/DL (32-36); MEAN CORPUSCULAR VOLUME 84 FL (80-99); MEAN PLATELET VOLUME 10.5 FL (7.4-10.4); MONOCYTES # (AUTO) 0.7 X 10^3 (0.0-1.0); MONOCYTES % (AUTO) 5 % (0-12); NEUTROPHILS # (AUTO) 9.9 X 10^3 (1.8-7.8); NEUTROPHILS % (AUTO) 72 % (42-75); PLATELET COUNT 187 10^3/uL (130-400); RED BLOOD COUNT 4.61 10^6/uL (4.35-5.85); RED CELL DISTRIBUTION WIDTH 13.6 % (10.0-14.5); WHITE BLOOD COUNT 13.8 10^3/uL (4.3-11.0)
--- NOTE | 2017-11-20 01:26 | ED GU-Female ---
General Chief Complaint: -Female Stated Complaint: POSS MISCARRIAGE Nursing Triage Note: vaginal bleeding, 12weeks Nursing Sepsis Screen: No Definite Risk Source: patient Exam Limitations: no limitations History of Present Illness Date Seen by Provider: Nov 20, 2017 Time Seen by Provider: 00:19 Initial Comments This 27-year-old young lady at approximately 12 weeks gestational age presents to emergency room with vaginal bleeding. She had a cervical biopsy performed on November 17. She was instructed by Dr. Cee that some brown discharge is to be expected. However, she developed some bright red discharge today and became concerned. She was directed to the emergency room. She presents a picture of the discharge which appears to be a scant amount of reddish clear liquid on toilet paper. She has had no bleeding since then. Allergies and Home Medications Allergies Coded Allergies: Estradiol Cypionate (Verified Allergy, Unknown, HIVES AND SWELLING, ) Penicillins (Verified Allergy, Unknown, HIVES, 01/31/15) aripiprazole (Unverified Allergy, Unknown, 03/13/15) Patient Home Medication List Home Medication List Reviewed: Yes Constitutional: no symptoms reported EENTM: no symptoms reported Respiratory: no symptoms reported Cardiovascular: no symptoms reported Gastrointestinal: no symptoms reported 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: no symptoms reported : Yes Musculoskeletal: no symptoms reported Skin: no symptoms reported Psychiatric/Neurological: No Symptoms Reported Endocrine: No Symptoms Reported Past Kaxpxwk-Txauyw-Yvabic Hx Patient Social History Alcohol Use: Denies Use Number of Drinks Today: AA Alcohol Beverage of Choice: Beer Recreational Drug Use: No Smoking Status: Current Everyday Smoker Type Used: Cigarettes 2nd Hand Smoke Exposure: Yes Recent Foreign Travel: No Contact w/Someone Who Travel: No Recent Infectious Disease Expo: No Recent Hopitalizations: No Immunizations Up To Date Tetanus Booster (TDap): Less than 5yrs PED Vaccines UTD: Yes Date of Influenza Vaccine: Jun 07, 2014 Seasonal Allergies Seasonal Allergies: No Surgeries History of Surgeries: Yes (bx of cervix) Surgeries: Section Respiratory History of Respiratory Disorde: No Cardiovascular History of Cardiac Disorders: No Neurological History of Neurological Disord: No Reproductive System : Yes Last Menstrual Period: Aug 26, 2017 Hx Reproductive Disorders: No Sexually Transmitted Disease: No CRIME VICTIM SPECIALIST History: IUD 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 History of 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 Disor: No 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 Disorders: UTI-Chronic Gastrointestinal History of Gastrointestinal Di: No Musculoskeletal History of Musculoskeletal Dis: No Endocrine History of Endocrine Disorders: No HEENT History of HEENT Disorders: No Cancer History of Cancer: Yes (Cervical dysplasia - pending biopsy obtained 11/17/17) Psychosocial History of Psychiatric Problem: Yes Behavioral Health Disorders: Anxiety, Bipolar, Depression Integumentary History of Skin or Integumenta: No Blood Transfusions History of Blood Disorders: No Family Medical History Significant Family History: No Pertinent Family Hx Family Medial History: Cancer 19 MOTHER, Onset: - (uterine) Family history: Allergy 19 FATHER (seasonal allergies) Family history: Diabetes mellitus 19 FATHER (type 2) Family history: Hypertension 19 FATHER, Onset: - Hereditary disease 19 FATHER (bipolar) 19 MOTHER (bipolar) History of drug abuse 19 MOTHER, Onset: - Psychotic disorder 19 FATHER (bipolar) 19 MOTHER (bb4cgqaz suicidal) No Family History of: Abdominal aortic aneurysm Dawson's disease Alcoholism Aphasia Cancer of colon Cataract Chest pain Congenital heart disease Congestive heart failure Cystic fibrosis Dementia Dysphagia Family history: Alzheimer's disease Family history: Arthritis Family history: Asthma Family history: Breast disease Family history: Cardiovascular disease Family history: Coronary thrombosis Family history: Gastrointestinal disease Family history: Glaucoma Family history: Osteoporosis Family history: Thyroid disorder Headache Hearing loss Heart disease History of - anemia History of - disorder History of - respiratory disease Human immunodeficiency virus (HIV) seropositivity Hypercholesterolemia Infertile Kidney disease Malignant neoplasm of lung Myocardial infarction Parkinson's disease Prostate cancer Seizure disorder Stroke Tuberculosis Visual impairment Physical Exam Vital Signs Vital Signs - First Documented 11/20/17 00:17 Temp 97.6 Pulse 104 Resp 18 B/P (MAP) 143/94 (110) Pulse Ox 98 O2 Delivery Room Air Capillary Refill : Less Than 3 Seconds General Appearance: WD/WN, no apparent distress, obese HEENT: normal ENT inspection Cardiovascular: regular rate, rhythm, no edema, no murmur Respiratory: lungs clear, normal breath sounds, no respiratory distress Gastrointestinal: normal bowel sounds, non tender, soft Extremities: normal inspection Neurologic/Psychiatric: administration clerk II-XII nml as tested, no motor/sensory deficits, alert, normal mood/affect, oriented x 3 Skin: normal color, warm/dry Progress/Results/Core Measures Suspected Sepsis Recent Fever Within 48 Hours: No Infection Criteria Present: None New/Unexplained Altered Menta: No Sepsis Screen: No Definite Risk Sepsis Diagnosis: SIRS Temperature:97.6 Pulse: 104 Respiratory Rate: 18 Laboratory Tests 11/20/17 00:30: White Blood Count 13.8H Blood Pressure 143 /94 Mean: 110 Laboratory Tests 11/20/17 00:30: Platelet Count 187 Results/Orders Lab Results Laboratory Tests Test 11/20/17 00:30 Range/Units White Blood Count 13.8 H 4.3-11.0 10^3/uL Red Blood Count 4.61 4.35-5.85 10^6/uL Hemoglobin 13.8 11.5-16.0 G/DL Hematocrit 39 35-52 % Mean Corpuscular Volume 84 80-99 FL Mean Corpuscular Hemoglobin 30 25-34 PG Mean Corpuscular Hemoglobin Concent 36 32-36 G/DL Red Cell Distribution Width 13.6 10.0-14.5 % Platelet Count 187 130-400 10^3/uL Mean Platelet Volume 10.5 H 7.4-10.4 FL Neutrophils (%) (Auto) 72 42-75 % Lymphocytes (%) (Auto) 22 12-44 % Monocytes (%) (Auto) 5 0-12 % Eosinophils (%) (Auto) 1 0-10 % Basophils (%) (Auto) 0 0-10 % Neutrophils # (Auto) 9.9 H 1.8-7.8 X 10^3 Lymphocytes # (Auto) 3.1 1.0-4.0 X 10^3 Monocytes # (Auto) 0.7 0.0-1.0 X 10^3 Eosinophils # (Auto) 0.1 0.0-0.3 10^3/uL Basophils # (Auto) 0.0 0.0-0.1 10^3/uL Human Chorionic Gonadotropin, Quant 09903 H <5 MIU/ML My Orders Orders - SANDRA HUNTLEY MD Cbc With Automated Diff (11/20/17 00:19) Hcg,Quantitative (11/20/17 00:19) Us Ob Single Fetus<14 [id number] (11/20/17 00:19) Vital Signs/I&O Vital Sign - Last 12Hours 11/20/17 11/20/17 00:17 01:33 Temp 97.6 97.6 Pulse 104 89 Resp 18 18 B/P (MAP) 143/94 (110) 134/87 (110) Pulse Ox 98 99 O2 Delivery Room Air Room Air Capillary Refill : Less Than 3 Seconds Blood Pressure Mean: 110 Progress Note : Progress Note Patient's bleeding resolved. She had no bleeding during her ER stay. She had no pain and no fever. Ultrasound was unremarkable. Pelvic exam was not performed as patient's symptoms resolved. I had concern that performing a pelvic exam may cause further bleeding at the biopsy site. Diagnostic Imaging Diagonstic Imaging: Ultrasound Plain Films/CT/US/NM/MRI: abdomen Comments Ultrasound Revealed a single live intrauterine gestation at about 12 weeks gestational age with no abnormalities detected. Departure Impression Impression: Primary Impression: Vaginal bleeding during Disposition: HOME, SELF-CARE Condition: Improved Departure-Patient Inst. Decision time for Depature: 01:25 Referrals: [facility] (PCP/Family) Primary Care Physician Patient Instructions: NO INSTRUCTIONS GIVEN Add. Discharge Instructions: Contact Dr. Cee or return to care if you have worsening bleeding, pain , fever, or other concerning symptoms. Observe pelvic rest (nothing in the vagina including intercourse) until cleared by Dr. Cee. All discharge instructions reviewed with patient and/or family. Voiced understanding. Copy Copies To 1: CATIE CEE MD, JOSHUA T MD Nov 20, 2017 01:26
[2017-11-20 01:33] VITALS: BP 134/87
--- NOTE | 2017-11-20 07:12 | Diagnostic Imaging Report ---
PROCEDURE: US OB SINGLE FETUS <14 WKS. TECHNIQUE: Multiple, limited real-time grayscale images were obtained over the gravid uterus in various projections. INDICATION: Recent cervical biopsy a couple of days ago, now bleeding. FINDINGS: Limited obstetrical sonogram imaging demonstrates presence of an intrauterine currently of variable presentation. There appears to be a normal amount of amniotic fluid for the gestational age. cardiac activity 155 beats per minute. No findings to suggest underlying myometrial mass. Ovaries are not visualized. No significant free pelvic fluid. IMPRESSION: Very limited obstetrical sonogram imaging demonstrates a live intrauterine without evidence for current complication. A preliminary report was provided by [employer]. Dictated by: Dictated on workstation # [id number]
== END 2017-11-20 01:29 | disposition home or self-care (01) ==
LOC: EDUNIT# 23:46 → ER 23:50
DX: O20.9 Hemorrhage in early pregnancy, unspecified (principal); O99.341 Other mental disorders complicating pregnancy, first trimester; F41.9 Anxiety disorder, unspecified; F31.9 Bipolar disorder, unspecified; O99.331 Smoking (tobacco) complicating pregnancy, first trimester; F17.210 Nicotine dependence, cigarettes, uncomplicated; Z97.5 Presence of (intrauterine) contraceptive device; Z3A.12 12 weeks gestation of pregnancy; Z87.440 Personal history of urinary (tract) infections; Z87.59 Personal history of other complications of pregnancy, childbirth and the puerperium; Z88.0 Allergy status to penicillin; Z88.8 Allergy status to other drugs, medicaments and biological substances; Z98.890 Other specified postprocedural states
CPT/HCPCS: 36415; 76801; 84702; 85025

== ENCOUNTER → 2018-04-08 | Outpatient (CLI) | payer MEDICARE, MEDICAID ==
[~2018-04-08] MED LIST changes: +AZIT1PAC11 PO; +FLUC200T PO; +FLUO20CA25; +ONDA8TAB13; +PNV1TABL65
== END ==
LOC: LABNPT 16:00
PROVIDERS: ATTEND Obstetrics & Gynecology
DX: O28.8 Other abnormal findings on antenatal screening of mother (principal)
CPT/HCPCS: 82570; 84156

== ENCOUNTER 2018-04-16 14:45 | Outpatient (CLI) | payer MEDICARE, MEDICAID ==
[~2018-04-16] VITALS: Ht 157.5 cm; Wt 119.9 kg
[~2018-04-16 14:45] MED LIST changes: -AZIT1PAC11 PO; -FLUC200T PO
[2018-04-16 15:00] VITALS: BP 110/63
[2018-04-16] MEDS ORDERED: ONDANSETRON 4 MG/2 ML (SDV) Z0FRAN IVP ONE (15:15)
[2018-04-16] MEDS ORDERED: D5 LR IV SOLUTION 1,000 ML IV ONE (15:15)
[2018-04-16] MEDS ORDERED: LOPERAMIDE 2 MG (IMODIUM) CAP PO NR (15:15)
[2018-04-16 15:57] LABS: BASOPHILS % (AUTO) 0 % (0-10); EOSINOPHILS # (AUTO) 0.1 10^3/uL (0.0-0.3); EOSINOPHILS % (AUTO) 1 % (0-10); HEMATOCRIT 36 % (35-52); HEMOGLOBIN 12.6 G/DL (11.5-16.0); LYMPHOCYTES # (AUTO) 2.6 X 10^3 (1.0-4.0); LYMPHOCYTES % (AUTO) 17 % (12-44); MEAN CORPUSCULAR HEMOGLOBIN 31 PG (25-34); MEAN CORPUSCULAR HGB CONC 35 G/DL (32-36); MEAN CORPUSCULAR VOLUME 87 FL (80-99); MEAN PLATELET VOLUME 11.1 FL (7.4-10.4); MONOCYTES # (AUTO) 0.9 X 10^3 (0.0-1.0); MONOCYTES % (AUTO) 6 % (0-12); NEUTROPHILS # (AUTO) 11.8 X 10^3 (1.8-7.8); NEUTROPHILS % (AUTO) 77 % (42-75); PLATELET COUNT 145 10^3/uL (130-400); RED BLOOD COUNT 4.09 10^6/uL (4.35-5.85); RED CELL DISTRIBUTION WIDTH 13.9 % (10.0-14.5); WHITE BLOOD COUNT 15.4 10^3/uL (4.3-11.0)
[2018-04-16 16:28] LABS: ALANINE AMINOTRANSFERASE 13 U/L (0-55); ALBUMIN 3.1 GM/DL (3.2-4.5); ALKALINE PHOSPHATASE 100 U/L (40-136); BILIRUBIN,TOTAL 0.3 MG/DL (0.1-1.0); BUN/CREATININE RATIO 5; CARBON DIOXIDE 21 MMOL/L (21-32); CHLORIDE 109 MMOL/L (98-107); CREATININE SERUM 0.56 MG/DL (0.60-1.30); GFR ESTIMATED > 60; GLUCOSE 79 MG/DL (70-105); SODIUM 138 MMOL/L (135-145); TOTAL PROTEIN 6.1 GM/DL (6.4-8.2); URIC ACID 4.7 MG/DL (2.6-7.2)
[2018-04-16 16:35] LABS: BAND NEUTROPHILS 0 %; BASOPHILS % (MANUAL) 0 %; EOSINOPHILS % (MANUAL) 0 %; LYMPHOCYTES % (MANUAL) 18 %; MONOCYTES % (MANUAL) 1 %; NEUTROPHILS % (MANUAL) 81 %; RBC MORPH NORMAL
[2018-04-16 16:52] LABS: BILIRUBIN,URINE NEGATIVE (NEGATIVE); CLARITY,URINE CLEAR; COLOR,URINE YELLOW; GLUCOSE, URINE (UA) NEGATIVE (NEGATIVE); KETONES,URINE NEGATIVE (NEGATIVE); LEUKOCYTE ESTERASE ,URINE 1+ (NEGATIVE); NITRITE,URINE NEGATIVE (NEGATIVE); PH,URINE 7 (5-9); PROTEIN,URINE 1+ (NEGATIVE); UROBILINOGEN,URINE 1 MG/DL (NORMAL)
[2018-04-16 17:04] LABS: BACTERIA,URINE NEGATIVE /HPF; SQUAMOUS EPITHELIAL CELL,UR 0-2 /HPF; WBC,URINE RARE /HPF
[2018-04-16] MEDS ORDERED: D5 LR IV SOLUTION 1,000 ML IV SCH (17:15)
[2018-04-16] MEDS ORDERED: AZIT1PAC11 PO (17:53)
--- NOTE | 2018-04-19 18:23 | Physician Query-Final Dx ---
PEDRO FARAH 04/19/18 1823: Clinic Account Progress/Dx Physician Query: Please give diagnosis Date of Service Apr 16, 2018 at 14:45 CATIE MESA MD 04/20/18 1138: Clinic Account Progress/Dx DIAGNOSIS: Diagnosis Hyperemesis gravidarum PEDRO FARAH Apr 19, 2018 18:23 CATIE MESA MD Apr 20, 2018 11:38
== END 2018-04-16 18:00 | disposition home or self-care (01) ==
LOC: LDRP 14:45 → WSo 14:45
PROVIDERS: ATTEND Obstetrics & Gynecology
DX: O21.0 Mild hyperemesis gravidarum (principal); Z3A.00 Weeks of gestation of pregnancy not specified
CPT/HCPCS: 36415; 80053; 81000; 82570; 83615; 84156; 84550; 85007; 85027; 96361; 96374; 99214

== ENCOUNTER 2018-04-21 09:00 | Outpatient (CLI) | payer MEDICARE, MEDICAID ==
[~2018-04-21] VITALS: Ht 157.5 cm; Wt 120.8 kg
[~2018-04-21 09:00] MED LIST changes: +AZIT1PAC11 PO
[2018-04-21 09:36] VITALS: BP 129/63
[2018-04-21] MEDS ORDERED: FLUC200T PO (11:28)
--- NOTE | 2018-04-22 14:27 | Physician Query-Final Dx ---
JENNIFER GARCIA 04/22/18 1427: Clinic Account Progress/Dx Physician Query: Please give a diagonosis and the weeks of gestation thank you Date of Service Apr 21, 2018 at 09:00 CATIE MESA MD 04/23/18 0747: Clinic Account Progress/Dx DIAGNOSIS: Diagnosis false labor at 33 weeks' gestation JENNIFER GARCIA Apr 22, 2018 14:27 CATIE MESA MD Apr 23, 2018 07:47
== END 2018-04-21 11:51 | disposition home or self-care (01) ==
LOC: WSo 09:00 → LDRP 09:01 → WSo 11:51
PROVIDERS: ATTEND Obstetrics & Gynecology
DX: O47.03 False labor before 37 completed weeks of gestation, third trimester (principal); Z3A.33 33 weeks gestation of pregnancy
CPT/HCPCS: 87210; 99214

== ENCOUNTER 2018-05-04 23:44 | Outpatient (CLI) | payer MEDICARE, MEDICAID ==
[~2018-05-04] VITALS: Ht 157.5 cm; Wt 120.7 kg
[~2018-05-04 23:44] MED LIST changes: +FLUC200T PO; +HYDR-4227 PO; -HYDR-756 PO
[2018-05-05] VITALS: BP 119/63
[2018-05-05 00:21] LABS: CLARITY,URINE CLEAR; COLOR,URINE YELLOW; GLUCOSE, URINE (UA) NEGATIVE (NEGATIVE); KETONES,URINE 1+ (NEGATIVE); LEUKOCYTE ESTERASE ,URINE 2+ (NEGATIVE); NITRITE,URINE NEGATIVE (NEGATIVE); PH,URINE 6.5 (5-9); PROTEIN,URINE 2+ (NEGATIVE); UROBILINOGEN,URINE 4 MG/DL (NORMAL)
[2018-05-05 00:23] LABS: BACTERIA,URINE TRACE /HPF
[2018-05-05 00:24] LABS: BILIRUBIN,URINE 1+ (NEGATIVE); WBC,URINE 0-2 /HPF
[2018-05-05 01:41] LABS: BILIRUBIN,URINE NEGATIVE (NEGATIVE); CLARITY,URINE CLEAR; COLOR,URINE YELLOW; GLUCOSE, URINE (UA) NEGATIVE (NEGATIVE); KETONES,URINE NEGATIVE (NEGATIVE); LEUKOCYTE ESTERASE ,URINE 1+ (NEGATIVE); NITRITE,URINE NEGATIVE (NEGATIVE); PH,URINE 7 (5-9); PROTEIN,URINE NEGATIVE (NEGATIVE); UROBILINOGEN,URINE NORMAL (NORMAL)
[2018-05-05 01:53] LABS: BACTERIA,URINE NEGATIVE /HPF; WBC,URINE RARE /HPF
--- NOTE | 2018-05-06 20:55 | Physician Query-Final Dx ---
PEDRO FARAH 05/06/185: Clinic Account Progress/Dx Physician Query: Please give diagnosis Please provide diagnosis and weeks of gestation. Date of Service May 04, 2018 at 23:44 KARIME VINCENT DO 05/26/18 1424: Clinic Account Progress/Dx DIAGNOSIS: Diagnosis 36 week vaginal discharge PEDRO FARAH May 06, 2018 20:55 KARIME VINCENT DO May 26, 2018 14:24
== END 2018-05-05 02:08 | disposition home or self-care (01) ==
LOC: LDRP 23:44 → WSo 23:44
PROVIDERS: ATTEND Obstetrics & Gynecology
DX: O99.89 Other specified diseases and conditions complicating pregnancy, childbirth and the puerperium (principal); N89.8 Other specified noninflammatory disorders of vagina; Z3A.36 36 weeks gestation of pregnancy
CPT/HCPCS: 81000; 87088; 99214

== ENCOUNTER 2018-05-19 12:54 | Outpatient (CLI) | payer MEDICARE, MEDICAID ==
[~2018-05-19] VITALS: Ht 157.5 cm; Wt 123.8 kg
[2018-05-19 12:41] VITALS: BP 139/76
[2018-05-19] MEDS ORDERED: AZIT500T2 PO (13:02)
[2018-05-19 14:00] VITALS: BP 119/68
[2018-05-19 15:10] VITALS: BP 119/68
== END 2018-05-19 15:10 | disposition home or self-care (01) ==
LOC: LDRP 12:54 → WSo 12:54
PROVIDERS: ATTEND Obstetrics & Gynecology
DX: O47.1 False labor at or after 37 completed weeks of gestation (principal); Z3A.38 38 weeks gestation of pregnancy
CPT/HCPCS: 87088; 99214

== ENCOUNTER 2018-05-20 12:38 | Outpatient (CLI) | payer MEDICARE, MEDICAID ==
[~2018-05-20] VITALS: Ht 157.5 cm; Wt 123.8 kg
[~2018-05-20 12:38] MED LIST changes: +AZIT500T2 PO
[2018-05-20 12:48] VITALS: BP 125/86
[2018-05-27] MEDS ORDERED: IBUP-1780 PO (07:46)
[2018-05-27] MEDS ORDERED: OXYC1TAB12 PO (07:46)
[2018-05-27] MEDS ORDERED: DOCU100C37 PO (07:46)
[2018-05-28] MEDS ORDERED: FLUO20CA42 PO (07:57)
== END 2018-05-20 13:00 | disposition home or self-care (01) ==
LOC: PREOP 12:38
PROVIDERS: ATTEND Obstetrics & Gynecology
DX: Z01.818 Encounter for other preprocedural examination (principal)
CPT/HCPCS: 87081

== ENCOUNTER 2018-05-26 10:05 | Inpatient (IN) | payer MEDICARE, MEDICAID ==
[~2018-05-26] VITALS: Ht 157.5 cm; Wt 122.5 kg
[2018-05-26] MEDS ORDERED: metroNIDAZOLE 500MG/100ML IVPB 100 ML IV ONE ×2 (10:30→12:00)
[2018-05-26] MEDS ORDERED: ceFAZolin 2 GM IV Premixed 50 ML IV ONE (10:30)
[2018-05-26] MEDS ORDERED: FAMOTIDINE 20MG/2ML IV (PEPCID) IV ONE (10:30)
[2018-05-26] MEDS ORDERED: CITRIC ACID/SOB CIT (BICITRA) 30 ML UDC PO ONE (10:30)
[2018-05-26] MEDS ORDERED: METOCLOPRAMIDE INJ 10 MG/2 ML (REGLAN) IV ONE (10:30)
[2018-05-26] MEDS ORDERED: CATHETER FLUSH 10 ML SYR IV PRN (10:30)
[2018-05-26] MEDS: LACTATED RINGERS 1,000 ML IV PRN ×2 (10:45→11:06)
[2018-05-26 10:54] LABS: BASOPHILS % (AUTO) 0 % (0-10); EOSINOPHILS # (AUTO) 0.1 10^3/uL (0.0-0.3); EOSINOPHILS % (AUTO) 0 % (0-10); HEMATOCRIT 36 % (35-52); HEMOGLOBIN 12.5 G/DL (11.5-16.0); LYMPHOCYTES # (AUTO) 2.3 X 10^3 (1.0-4.0); LYMPHOCYTES % (AUTO) 15 % (12-44); MEAN CORPUSCULAR HEMOGLOBIN 31 PG (25-34); MEAN CORPUSCULAR HGB CONC 35 G/DL (32-36); MEAN CORPUSCULAR VOLUME 88 FL (80-99); MONOCYTES # (AUTO) 0.7 X 10^3 (0.0-1.0); MONOCYTES % (AUTO) 5 % (0-12); NEUTROPHILS # (AUTO) 12.5 X 10^3 (1.8-7.8); NEUTROPHILS % (AUTO) 80 % (42-75); PLATELET COUNT 159 10^3/uL (130-400); RED BLOOD COUNT 4.09 10^6/uL (4.35-5.85); RED CELL DISTRIBUTION WIDTH 15.1 % (10.0-14.5); WHITE BLOOD COUNT 15.5 10^3/uL (4.3-11.0)
[2018-05-26 11:00] VITALS: BP 114/53
[2018-05-26] MEDS ORDERED: BUPIVACAINE 0.5% 30 ML (SENSORCAINE) VIAL ONE (11:00)
[2018-05-26] MEDS ORDERED: fentaNYL INJECTION 100 MCG/2 ML AMP ONE (11:00)
[2018-05-26] MEDS ORDERED: ONDANSETRON 4 MG/2 ML (SDV) Z0FRAN ONE (11:00)
[2018-05-26] MEDS ORDERED: OXYTOCIN (PITOCIN) 10 UNIT/ML VIAL ONE (11:00)
[2018-05-26] MEDS ORDERED: LIDOCAINE PF 1% 5 ML (XYLOCAINE) AMP ONE (11:10)
[2018-05-26 11:17] LABS: BAND NEUTROPHILS 1 %; BASOPHILS % (MANUAL) 0 %; EOSINOPHILS % (MANUAL) 0 %; LYMPHOCYTES % (MANUAL) 13 %; MONOCYTES % (MANUAL) 4 %; NEUTROPHILS % (MANUAL) 80 %
[2018-05-26 11:18] LABS: ANISOCYTOSIS SLIGHT; REACTIVE LYMPHOCYTES 2 %; TOXIC GRANULATION/VACUOLAZATIO 1+
[2018-05-26] MEDS ORDERED: FLU QUADRIvalent (5+ YOA) 2018-2019 (AFLURIA) 0.5 ML IM ONE (11:30)
[2018-05-26] MEDS ORDERED: RT-ALBUTEROL/IPRATROPIUM 3 ML (DUONEB) VIAL ONE (11:30)
[2018-05-26] MEDS ORDERED: D5 LR IV SOLUTION 1,000 ML IV SCH (12:00)
--- NOTE | 2018-05-26 12:07 | History & Physical ---
History and Physical Date Seen by Provider: May 26, 2018 Time Seen by Provider: 12:05 This patient is a 27-year-old A2 white female with an EDC of 9 2618 putting her now at 39 weeks gestation. She presents for repeat delivery as she has been uncomplicated. She does have a history of an anterior vaginal wall cyst noted during this plan is for excision of that cyst by partial vaginectomy concurrent with . Patient's GBS culture was negative. Patient denies rupture membranes or bleeding. She denies contractions." Baby moving. Allergies are to penicillin which causes hives and Abilify which causes tremors Medications are vitamins Past medical social and surgical histories are per the antepartum record HEENT exam is normal Neck is supple no lymphadenopathy no thyromegaly Abdomen is gravid soft nontender nondistended Extremities show clubbing cyanosis. There is no Homans sign. Pelvic exam is deferred. Pelvic exam in clinic showed thick and closed there was a 2 cm anterior vaginal wall at about one third aspect introitus noted during this . That is nontender and fluctuant. There is no signs symptoms and indications of infection. Laboratory Tests 05/26/18 10:45 Assessment and plan 39 week gestation with previous admitted now for repeat delivery. Patient also has an anterior vaginal wall cyst that'll be excised likely by partial vaginectomy. That'll be decided in the operating room. Surgical risk complication recovering and follow-up have been discussed. 39 week for repeat Allergies and Home Medications Allergies Coded Allergies: Estradiol Cypionate (Verified Allergy, Unknown, HIVES AND SWELLING, ) Penicillins (Verified Allergy, Unknown, HIVES, 05/04/18) aripiprazole (Unverified Allergy, Unknown, 05/04/18) Home Medications Azithromycin 500 Mg Tablet, 500 MG PO DAILY, (Reported) Patient Home Medication List Home Medication List Reviewed: Yes Clinical Quality Measures DVT/VTE Risk/Contraindication: Risk Factor Score Per Nursin RFS Level Per Nursing on Admit: 2=Moderate CATIE MESA MD May 26, 2018 12:07 pm
[2018-05-26] MEDS ORDERED: D5 LR IV SOLUTION 1,000 ML IV ONE (12:10)
[2018-05-26] MEDS ORDERED: MEPERIDINE (DEMEROL) INJ 100 MG/ML IM PRN (12:15)
[2018-05-26] MEDS ORDERED: PROMETHAZINE INJ 25 MG/ML (PHENERGAN) AMP IM PRN (12:15)
[2018-05-26] MEDS ORDERED: TETANUS,DIPTH,PERTUSS P/F (BOOSTRIX) 0.5 ML VIAL IM ONE (12:15)
[2018-05-26] MEDS ORDERED: MEASLES,MUMPS,RUBELLA 1 EA INJ SC ONE (12:15)
[2018-05-26] MEDS ORDERED: ONDANSETRON 4 MG/2 ML (SDV) Z0FRAN IVP PRN (12:15)
[2018-05-26] MEDS ORDERED: ceFAZolin 2 GM IV Premixed 50 ML IV NR (12:30)
[2018-05-26] MEDS ORDERED: PHENYLEPHRINE 100 MCG/ML 10 ML (ANESTHESIA) SYR ONE (13:28)
[2018-05-26] MEDS: OXYTOCIN/NORMAL SALINE 500 ML IV SCH ×2 (13:30→13:48)
[2018-05-26] MEDS: KETOROLAC 30 MG/ML VIAL IVP SCH ×2 (13:51→20:33)
--- NOTE | 2018-05-26 15:18 | OPERATIVE REPORT ---
DATE OF SERVICE: 05/26/2018 PREOPERATIVE DIAGNOSES: Term at 39 weeks gestation with previous and with anterior vaginal wall cyst. POSTOPERATIVE DIAGNOSES: Term at 39 weeks gestation with previous and with anterior vaginal wall cyst with pathology pending. OPERATIVE PROCEDURE: Anterior vaginal wall excision/partial vaginectomy for removal of vaginal wall cyst and repeat low transverse delivery of a viable male infant with Apgars that are pending. Cord blood pH was 7.22 and a weight of 7 pounds 3 ounces with a time of 1300. OPERATIVE DESCRIPTION: With the patient in the supine position under satisfactory spinal anesthesia, she was repositioned in the dorsal lithotomy position in the [facility]. The vagina and perineum and labia were prepped with Betadine. A Merlos catheter was placed in the urinary bladder. Weighted speculum was placed in the posterior fornix of the vagina. A 2 to 3 cm fluctuant anterior vaginal wall cyst was immediately evident. It was approximately 3 cm from the introitus. The urethra was easily palpable with the catheter and was remote from the cyst. An Allis clamp was placed on the cyst. Vaginotomy incisions were made at the base of the cyst and continued circumferentially until the cyst was excised completely and intact. The urethra was not disturbed. The defect was closed with a running lock suture of 3-0 Vicryl Rapide taking care to ensure hemostasis by closure of the deep tissues at the same time with the same layer. Hemostasis was complete. Good reapproximation was evident. The specimen was sent to pathology appropriately labeled for permanent section. The patient was brought now in the low dorsal lithotomy position and prepped and draped in the usual fashion for abdominal surgery. A repeat Pfannenstiel incision was made through the skin with a scalpel, the patient's abdomen was entered in the usual manner. Bladder retractor placed in a position, clean scalpel used to make a 4 cm hysterotomy incision transversely across the lower uterine segment that was extended by a blunt dissection as well. Copious clear fluid was released on hysterotomy. A vigorous viable male was delivered via the uterine incision. Infant had Apgars that are pending. Weight and stats as noted above. The infant was bulb suctioned on delivery of the head and again on completion of delivery. The umbilical cord was doubly clamped and cut and the passed to the pediatric nurse in attendance for delivery. Cord bloods obtained. Placenta delivered spontaneously Calderon. It was normal with a 3-vessel cord. The uterus was exteriorized, the interior wiped clean with a wet laparotomy sponge. Uterine incision then closed with a running locked suture of 2-0 Vicryl. Hemostasis was complete once a figure-of-8 suture was placed at the left margin of the hysterotomy incision at the area of a pulsatile vessel. With the hemostasis assured, the uterus was returned to the abdominal cavity and all blood clot and debris removed from the abdominal cavity. The anterior abdominal wall was closed in the parietal fascia with 2-0 Vicryl suture in a running fashion. The rectus muscles were closed with that suture as well. The rectus fascia was closed with two sutures of 2-0 Vicryl, subcutaneous tissue was closed with 2-0 Vicryl and the skin was stapled. Sponge and needle counts were correct on completion of the procedure. Estimated blood loss for the procedure was around 400 mL. The patient tolerated the procedure well and was transferred to the recovery in stable condition. The infant was taken stable to the full term nursery under the care of the pediatric nurse. Job ID: [id number] DocumentID: [id number] Dictated Date: 05/26/2018 13:23:36 Manager Multimedia Date: 05/26/2018 15:17:14 Dictated By: CATIE MESA MD
[2018-05-26] MEDS ORDERED: RT-ALBUTEROL/IPRATROPIUM 3 ML (DUONEB) VIAL INH PRN (15:30)
[2018-05-26 15:45] VITALS: BP 109/84
[2018-05-26] MEDS: oxyCODONE/APAP 10/325MG (PERCOCET 10) TABLET PO PRN ×2 (16:57→21:20)
[2018-05-26 20:15] VITALS: BP 109/65
[2018-05-26] MEDS: DOCUSATE SODIUM 100 MG (COLACE) CAP PO SCH (21:10)
[2018-05-27 00:40] VITALS: BP 116/70
[2018-05-27] MEDS: oxyCODONE/APAP 10/325MG (PERCOCET 10) TABLET PO PRN ×5 (01:35→20:34)
[2018-05-27] MEDS: KETOROLAC 30 MG/ML VIAL IVP SCH ×2 (02:04→20:23)
[2018-05-27 05:30] VITALS: BP 120/77
--- NOTE | 2018-05-27 07:03 | Anesthesia-Regional Post-Op ---
Regional Patient Condition Mental Status: Alert, Oriented x3 Circulation: Same as Pre-Op Headache: Absent Sensation: Full Recovery Motor Block: Absent Post Op Complications Complications None Follow Up Care/Instructions Patient Instructions None needed. Anesthesia/Patient Condition Patient is doing well, no complaints, stable vital signs, no apparent adverse anesthesia problems. No complications reported per nursing. JORJE SWANN CRNA May 27, 2018 07:03
--- NOTE | 2018-05-27 07:42 | Progress Note-Standard ---
Standard Progress Note Progress Notes/Assess & Plan Date Seen by a Provider: May 27, 2018 Time Seen by a Provider: 07:41 Progress/Assessment & Plan This patient is without complaint. She is ambulating, voiding, tolerating oral intake well, patient has good pain control. Vital Signs 05/27/18 05:30 Temp 97.9 Pulse 91 Resp 16 B/P (MAP) 120/77 (91) Pulse Ox 98 O2 Delivery Room Air Vital signs are stable. Patient is afebrile. Fundus is firm below the umbilicus and nontender. The surgical incision is clean dry and intact. Extremities show clubbing cyanosis. There is no Homans sign. Assessment and plan post operative day number 1 status post repeat and partial vaginectomy area patient is doing well and will have routine convalescence care CAITE MESA MD May 27, 2018 7:42 am
[2018-05-27] MEDS ORDERED: DOCU100C37 PO (07:46)
[2018-05-27] MEDS ORDERED: OXYC1TAB12 PO (07:46)
[2018-05-27] MEDS ORDERED: IBUP-1780 PO (07:46)
--- NOTE | 2018-05-27 07:47 | Discharge Instructions ---
Discharge Instructions Discharge Medications New, Converted or Re-Newed RX: RX on Chart Patient Instructions Patient Instructions: As directed Return to The Hospital For: As directed Activity & Diet Discharge Diet: No Restrictions Activity as Tolerated: No Orders-Post D/C & Referrals Follow Up Appt: RTC 1 week for incision check. Call to make follow up appt. for patient in 4 weeks. Wound Care: Remove oliver, apply benzoin and steri strips. Activity Per routine post instructions. Please call in RX to patient pharmacy. Diet as tolerated Patient may shower or tub bathe as desired. Continue home meds CATIE MESA MD May 27, 2018 7:47 am
[2018-05-27] MEDS ORDERED: IBUPROFEN 800 MG (MOTRIN) TAB PO ONE (08:07)
[2018-05-27 08:15] VITALS: BP 118/75
[2018-05-27] MEDS: DOCUSATE SODIUM 100 MG (COLACE) CAP PO SCH ×2 (08:15→20:34)
[2018-05-27] MEDS: IBUPROFEN 800 MG (MOTRIN) TAB PO SCH ×3 (08:16→20:34)
[2018-05-27] MEDS ORDERED: TETANUS,DIPTH,PERTUSS P/F (BOOSTRIX) 0.5 ML VIAL IM ONE (08:26)
[2018-05-27] MEDS ORDERED: FLU QUADRIvalent (5+ YOA) 2018-2019 (AFLURIA) 0.5 ML IM ONE (08:26)
[2018-05-27 12:00] VITALS: BP 128/80
[2018-05-27 16:00] VITALS: BP 120/75
[2018-05-27 20:34] VITALS: BP 135/87
[2018-05-28] MEDS: oxyCODONE/APAP 10/325MG (PERCOCET 10) TABLET PO PRN ×2 (01:00→05:24)
[2018-05-28 02:23] VITALS: BP 114/85
[2018-05-28] MEDS: IBUPROFEN 800 MG (MOTRIN) TAB PO SCH ×2 (02:23→08:58)
--- NOTE | 2018-05-28 07:56 | Progress Note-Standard ---
Standard Progress Note Progress Notes/Assess & Plan Date Seen by a Provider: May 28, 2018 Time Seen by a Provider: 07:54 Progress/Assessment & Plan This patient is without complaint. She is ambulating, voiding, tolerating oral intake well, patient has good pain control. Vital Signs 05/27/18 05:30 Temp 97.9 Pulse 91 Resp 16 B/P (MAP) 120/77 (91) Pulse Ox 98 O2 Delivery Room Air Vital signs are stable. Patient is afebrile. Fundus is firm below the umbilicus and nontender. The surgical incision is clean dry and intact. Extremities show clubbing cyanosis. There is no Homans sign. Assessment and plan post operative day number 1 status post repeat and partial vaginectomy area patient is doing well and will have routine convalescence care May 28, 2018 Patient without complaint. She is ambulating, voiding, tolerating oral intake well has good pain control and is requesting discharge home. Vital Signs 05/28/18 02:23 Temp 97.8 Pulse 106 Resp 18 B/P (MAP) 114/85 (95) Pulse Ox 99 O2 Delivery Room Air Vital signs are stable. Patient afebrile. Fundus is firm below the umbilicus and nontender. The surgical incision is clean dry and intact. Extreme show clubbing cyanosis. There is no Homans sign. Assessment and plan post operative day number 2 status post repeat and removal of vaginal cyst. Patient will be discharged home with follow-up in clinic patient will be started on Prozac for mood disorder and depression Final Diagnosis Term repeat CATIE MESA MD May 28, 2018 7:56 am
[2018-05-28] MEDS ORDERED: FLUO20CA42 PO (07:57)
[2018-05-28 08:45] VITALS: BP 133/84
[2018-05-28] MEDS: DOCUSATE SODIUM 100 MG (COLACE) CAP PO SCH (08:58)
[2018-05-28] MEDS ORDERED: FLUoxetine HCL 20 MG (PROzac) CAP PO SCH (09:00)
== END 2018-05-28 11:15 | disposition home or self-care (01) | DRG 766 ==
LOC: LDRP 10:05
PROVIDERS: ADMIT Obstetrics & Gynecology; ATTEND Obstetrics & Gynecology
PROC: 0UBG7ZZ Excision of Vagina, Via Natural or Artificial Opening (ICD-10-PCS; 2018-05-26)
PROC: 10D00Z1 Extraction of Products of Conception, Low, Open Approach (ICD-10-PCS; principal; 2018-05-26 12:08)
DX: O34.211 Maternal care for low transverse scar from previous cesarean delivery (principal); O26.893 Other specified pregnancy related conditions, third trimester; N89.8 Other specified noninflammatory disorders of vagina; O99.345 Other mental disorders complicating the puerperium; F53 Mental and behavioral disorders associated with the puerperium, not elsewhere classified; F31.9 Bipolar disorder, unspecified; O99.334 Smoking (tobacco) complicating childbirth; F17.210 Nicotine dependence, cigarettes, uncomplicated; Z3A.39 39 weeks gestation of pregnancy; Z37.0 Single live birth; Z23 Encounter for immunization
CPT/HCPCS: 36415; 85007; 85027; 86850; 86900; 86901; 90686; 90715; 94664

== ENCOUNTER → 2020-05-23 | Outpatient (CLI) | payer MEDICARE, MEDICAID ==
[~2020-05-23] MED LIST changes: +BARIUM for suspension 96% w/w (Vanilla Silq Medium Density) PO ONE; +BARIUM for suspension 98% w/w (Vanilla Silq High Density) PO ONE; +DOCU100C37 PO; -FLUO20CA25; +FLUO20CA46; +IBUP-1780 PO; +OXYC1TAB12 PO
--- NOTE | 2020-05-23 12:03 | Diagnostic Imaging Report ---
INDICATION: Preop for gastric sleeve surgery. Patient ingested effervescent crystals as well as thin and thick barium and imaging of the esophagus, stomach and proximal small bowel was performed. A total of 59 seconds of fluoroscopic time was utilized. Preliminary radiograph is unremarkable. Esophagus has a smooth contour. No mass or stricture is identified. No hiatal hernia or gastroesophageal reflux was demonstrated. The stomach has normal configuration. Duodenal bulb is without deformity. The visualized proximal small bowel loops are unremarkable. IMPRESSION: Unremarkable upper gastrointestinal. Dictated by: Dictated on workstation # [id number]
== END ==
LOC: RAD 05-17 09:39
PROVIDERS: ATTEND Surgery
DX: Z01.818 Encounter for other preprocedural examination (principal); K21.9 Gastro-esophageal reflux disease without esophagitis
CPT/HCPCS: 74246

== ENCOUNTER 2020-06-14 05:42 | Outpatient (RCR) | payer MEDICARE, MEDICAID ==
[~2020-06-14] VITALS: Ht 160 cm; Wt 117.7 kg
[~2020-06-14 05:42] MED LIST changes: -BARIUM for suspension 96% w/w (Vanilla Silq Medium Density) PO ONE; -BARIUM for suspension 98% w/w (Vanilla Silq High Density) PO ONE
[2020-06-14] MEDS ORDERED: HYDR-3781 PO (14:25)
[2020-06-14] MEDS ORDERED: VNL75T PO (14:25)
== END 2020-06-14 15:00 | disposition home or self-care (01) ==
LOC: PREOP 05:42 → EDSTATUS 10:00 → PREOP 15:00
PROVIDERS: ATTEND Surgery
DX: Z01.818 Encounter for other preprocedural examination (principal)

== ENCOUNTER 2020-06-21 09:00 | Inpatient (IN) | payer MEDICARE, MEDICAID ==
[~2020-06-21] VITALS: Ht 157.5 cm; Wt 120.5 kg
[~2020-06-21 09:00] MED LIST changes: +HYDR-3781 PO; +VNL75T PO
[2020-07-19] VITALS (15 sets, daily range): BP systolic 116–144; BP diastolic 67–94
--- NOTE | 2020-07-19 08:29 | Progress Note-Pre Operative ---
Pre-Operative Progress Note H&P Reviewed The H&P was reviewed, patient examined and no changes noted. Date Seen by Provider: Jul 19, 2020 Time Seen by Provider: 08:25 Date H&P Reviewed: Jul 19, 2020 Time H&P Reviewed: 08:20 Pre-Operative Diagnosis: Morbid obesity, anxiety, depression, lower extremity edema ALFRED GAGNON APRN Jul 19, 2020 08:29
--- NOTE | 2020-07-19 08:31 | Discharge Inst-Surgical ---
D/C Lap Instructions-KIDO Reconcile Patient Problems Problems Reviewed?: Yes New, Converted, or Re-Newed RX: Other Follow Up Appt in 2 weeks Activity as tolerated No driving for 24 hours No driving while on pain medications Incentive Spirometry use every 2 hours while awake Clear liquid diet for 2 weeks, no carbonated beverages No heavy lifting or exertion for 6 weeks Symptoms to Report: Fever over 101 degree F, Nausea/Vomiting Infection Signs and Symptoms to report: Increased redness, Foul odor of wound, Increased drainage Bathing instructions: May shower Operative Area Clean/Dry; Keep incision clean/dry If any problems/questions: Contact your physician or go to Emergency Room ALFRED GAGNON APRN Jul 19, 2020 08:31
[2020-07-19] MEDS ORDERED: MIDAZOLAM 2 MG/2 ML (VERSED) VIAL ONE (09:03)
[2020-07-19] MEDS ORDERED: fentaNYL INJECTION 100 MCG/2 ML AMP ONE (09:03)
[2020-07-19 09:09] LABS: BASOPHILS % (AUTO) 0 % (0-10); EOSINOPHILS # (AUTO) 0.1 10^3/uL (0.0-0.3); EOSINOPHILS % (AUTO) 1 % (0-10); HEMATOCRIT 46 % (35-52); HEMOGLOBIN 15.7 g/dL (11.5-16.0); LYMPHOCYTES # (AUTO) 2.6 10^3/uL (1.0-4.0); LYMPHOCYTES % (AUTO) 23 % (12-44); MEAN CORPUSCULAR HEMOGLOBIN 29 pg (25-34); MEAN CORPUSCULAR HGB CONC 34 g/dL (32-36); MEAN CORPUSCULAR VOLUME 85 fL (80-99); MEAN PLATELET VOLUME 11.3 fL (9.0-12.2); MONOCYTES # (AUTO) 0.7 10^3/uL (0.0-1.0); MONOCYTES % (AUTO) 6 % (0-12); NEUTROPHILS # (AUTO) 7.8 10^3/uL (1.8-7.8); NEUTROPHILS % (AUTO) 70 % (42-75); PLATELET COUNT 209 10^3/uL (130-400); WHITE BLOOD COUNT 11.1 10^3/uL (4.3-11.0)
[2020-07-19] MEDS ORDERED: LACTATED RINGERS 1,000 ML IV PRN (09:10)
[2020-07-19] MEDS ORDERED: proPOfol 200 MG/20 ML (DIPRIVAN) VIAL IV ONE (09:13)
[2020-07-19] MEDS ORDERED: ONDANSETRON 4 MG/2 ML (SDV) Z0FRAN ONE (09:13)
[2020-07-19] MEDS ORDERED: LIDOCAINE PF 2% 5 ML (XYLOCAINE) VIAL ONE (09:13)
[2020-07-19] MEDS ORDERED: SEVOFLURANE (ULTANE) 15 ML INHAL SOLN ONE ×2 (09:14→11:17)
[2020-07-19] MEDS ORDERED: ROCURONIUM 10 MG/ML 5 ML SYRINGE IV ONE ×2 (09:14→10:49)
[2020-07-19] MEDS ORDERED: CLINDAMYCIN 600 MG/50 ML IVPB 50 ML IV ONE (09:15)
[2020-07-19] MEDS ORDERED: LIDOCAINE/EPI 1%-1:200,000 (XYLOCAINE) 30 ML VIAL ONE (09:16)
[2020-07-19] MEDS ORDERED: CATHETER FLUSH 10 ML SYR IV PRN (09:45)
[2020-07-19] MEDS ORDERED: NS IV 1000 ML 1,000 ML IV SCH (10:09)
[2020-07-19] MEDS ORDERED: diphenhydrAMINE 50 MG/ML INJ (BENADRYL) IVP PRN (10:15)
[2020-07-19] MEDS ORDERED: METOCLOPRAMIDE INJ 10 MG/2 ML (REGLAN) IV PRN (10:15)
[2020-07-19] MEDS ORDERED: diphenhydrAMINE 50 MG/ML INJ (BENADRYL) IV PRN (10:15)
[2020-07-19] MEDS ORDERED: ONDANSETRON 4 MG/2 ML (SDV) Z0FRAN IV PRN (10:15)
[2020-07-19] MEDS ORDERED: fentaNYL INJECTION 1,000 MCG in NS (IVPB) 80 ML IV SCH (10:15)
[2020-07-19] MEDS ORDERED: NALOXONE 0.4 MG/ML 1 ML (NARCAN) VIAL IV PRN (10:15)
[2020-07-19] MEDS: LACTATED RINGERS 1,000 ML IV SCH ×3 (10:33→23:33)
[2020-07-19] MEDS ORDERED: DESFLURANE (SUPRANE) 15 ML INHAL SOLN ONE (11:17)
[2020-07-19] MEDS ORDERED: GLYCOPYRROLATE 0.2 MG/ML (ROBINUL) 2 ML VIAL ONE (11:17)
[2020-07-19] MEDS ORDERED: NEOSTIGMINE 3 MG/3 ML VIAL ONE (11:17)
[2020-07-19] MEDS ORDERED: SUGAMMADEX 500 MG/5 ML VIAL (BRIDION) IV ONE (11:33)
[2020-07-19] MEDS ORDERED: MEPERIDINE (DEMEROL) INJ 50 MG/ML IVP ONE (11:45)
[2020-07-19] MEDS ORDERED: HYDROmorphone 2 MG/ML VIAL (DILAUDID) IV ONE (11:45)
[2020-07-19] MEDS ORDERED: ONDANSETRON 4 MG/2 ML (SDV) Z0FRAN IVP PRN (11:45)
[2020-07-19] MEDS ORDERED: morphine INJ 10 MG/ML 1ML (SYR OR VIAL) IVP ONE (11:45)
[2020-07-19] MEDS ORDERED: morphine INJ 10 MG/ML 1ML (SYR OR VIAL) ONE (11:49)
[2020-07-19] MEDS: ONDANSETRON 4 MG/2 ML (SDV) Z0FRAN IVP SCH ×2 (12:19→17:25)
[2020-07-19] MEDS: METOCLOPRAMIDE INJ 10 MG/2 ML (REGLAN) IVP SCH ×2 (12:21→17:24)
--- NOTE | 2020-07-19 12:35 | NUR ---
DIONNE CORREA admitted to room 410-1, with an admitting diagnosis of , on 07/19/20 from via bed, accompanied by staff.DIONNE CORREA introduced to surroundings, call light, bed controls, phone, TV, temperature control, lights, meal times, smoking policy, visitor policy, side rail policy, bathrooms and showers. Patient Rights given to patient in the handbook. DIONNE CORREA verbalizes understanding that [facility] is not responsible for the loss or damage to any personal effects or valuables that are kept in the patients posession during their hospitalization. DIONNE CORREA verbalizes understanding of Interdisciplinary Patient Education. Patient and/or family were informed about the Rapid Response Team and its purpose.
[2020-07-19] MEDS: metroNIDAZOLE 500MG/100ML IVPB 100 ML IV SCH ×2 (13:27→18:13)
--- NOTE | 2020-07-19 13:54 | Progress Note-Post Operative ---
Post-Operative Progess Note Surgeon (s)/Service Station Operator (s) Surgeon MARIO MANUEL MD Service Station Operator: maikol ryan [employer]AY TECHNICIAN Pre-Operative Diagnosis Morbid obesity, anxiety, depression, lower extremity edema Post-Operative Diagnosis same Procedure & Operative Findings Date of Procedure 07/19/20 Procedure Performed/Findings laparoscopic gastric sleeve resection. Anesthesia Type get Estimated Blood Loss Estimated blood loss (mL): minimal Specimens/Packing Specimens Removed stomach MARIO MANUEL MD Jul 19, 2020 13:54
[2020-07-19] MEDS: RT-ALBUTEROL SULF 2.5 MG/3 ML PRE-MIX VIAL INH SCH ×3 (14:12→21:59)
[2020-07-19] MEDS ORDERED: HYDR-3584 PO (15:25)
[2020-07-19] MEDS ORDERED: HYDR12.56 PO (15:25)
[2020-07-19] MEDS ORDERED: ACET-2267 PO (15:25)
--- NOTE | 2020-07-19 15:26 | NUR ---
SPOKE WITH PT, WENT THRU THE EXT MED HISTORY AND CALLED SHERIF MENDEZ TO COMPLETE THE MED REC 05-09-2020 HYDROXYZINE 10MG #90/30DS WAS FILLED AT [facility] AND DOES NOT SHOW ON THE EXT MED HISTORY OTC MEDS: TYLENOL
--- NOTE | 2020-07-19 16:14 | OPERATIVE REPORT ---
DATE OF SERVICE: 07/19/2020 ATTENDING PRIMARY CARE PHYSICIAN: Dr. Antonio Enriquez. PREOPERATIVE DIAGNOSES: Morbid obesity, bilateral lower extremity edema and depression. POSTOPERATIVE DIAGNOSES: Morbid obesity, bilateral lower extremity edema and depression. PROCEDURE PERFORMED: Laparoscopic gastric sleeve resection. SURGEON: Mario Manuel MD. BUSINESS SERVICES ANALYST: Kong Moreno APRN. ANESTHESIA: General endotracheal. ESTIMATED BLOOD LOSS: Minimal. FINDINGS: Umbilical hernia approximately 2 cm in size. No hiatal hernia. Liver and gallbladder appeared normal. DISPOSITION: The patient tolerated the procedure well. INDICATIONS FOR PROCEDURE: The patient is a 29-year-old female with history of morbid obesity and medical comorbidities related to her obesity including depression and bilateral lower extremity edema. She is in our surgical weight loss program for the laparoscopic gastric sleeve resection and meets the medical criteria for bariatric surgery. She states that she gained the majority of her adult weight after the of her second child two years ago. She has tried a number of diet and exercise attempts without any success. She has tried diet programs including ketogenic diet and low-fat diet without any success. She also has tried exercise regimens including walking, treadmill, stationary bike and resistance weight training with no success. She has also tried [id number] weight loss medications and would have some initial success; however, this became ineffective shortly over the time. DESCRIPTION OF PROCEDURE: The patient was brought to the operating room and laid supine on the table. After adequate IV pain and sedative medications and general endotracheal intubation, the abdomen was prepped and draped in a standard surgical fashion. A 0.5% Marcaine with epinephrine was then used to anesthetize overlying skin in the left upper abdominal quadrant and a transverse skin incision was made using a 15-blade. A 0 silk suture was applied to the medial aspect of incision for retraction and a Veress needle inserted with a low opening pressure of 0 mmHg. The abdomen was then insufflated to 15 mmHg pressure. The Veress needle removed and a 5 mm XL trocar placed followed by a 5 mm 45-degree angle laparoscope visualizing the peritoneal cavity. A 4-quadrant abdominal exploration was performed. There was an umbilical hernia identified with omentum within the hernia sac. The size of the hernia was approximately 2 cm in size. No hiatal hernia was identified and the remainder of the liver, gallbladder, stomach, omentum appeared normal. Under direct visualization, we then proceeded to place a midabdominal to left of midline, 10 mm port after the skin and peritoneal lining were anesthetized using 0.5% Marcaine with epinephrine and a transverse skin incision was made using a 15 blade. In a similar manner, a midabdominal right of midline 15 mm port was placed followed by a right upper abdominal quadrant 5 mm port. The epigastric region was then anesthetized and a skin incision made using an 11 blade and a tract was then created through the abdominal wall layers using a trocar to a 5 mm port and through this opening, a medium sized Nathansen liver retractor was placed and the left lobe of the liver retracted anteriorly and superiorly. The patient was then placed in a steep reverse Trendelenburg position. No hiatal hernia again was identified. We then marked 6 cm from the pylorus along the greater curvature and marked this with a marking pen. The gastrocolic ligament next to the stomach was then opened using Sonicision. We first proceeded with inferior dissection until we were approximately 2 cm below our marking using the Sonicision with visualization of good hemostasis. We then proceeded with superior dissection taking down the short gastric vessels as well as the angle of His connective tissue fibers as well as the posterior stomach behind this region with visualization of good hemostasis. A 34-Maori ViSiGi was then placed under direct visualization and placed to suction. Using this as our staple line guide, we then proceeded with our gastric sleeve resection starting 2 cm below our marking using a 45 mm polyglycolic black load. We then followed this with one 60 mm black load followed by two 60 mm purple loads completing our gastric sleeve resection and leaving approximately 2 cm next to the gastroesophageal junction. Good hemostasis was observed. The staple line corners were then clipped with 5 mm clips and then a leak test was performed to 35 mmHg air pressure with no leak identified. Air was then suctioned and the ViSiGi removed. Tisseel fibrin glue was then placed on the staple line and the omentum placed over the staple line. The liver retractor was then removed and the stomach was removed through the 15 mm port site. The 10 and 15 mm port site fascia and peritoneum were then closed under direct visualization using a Cristhian-Dayna device and 0 Vicryl suture. The abdomen was desufflated and the remaining ports were removed. All skin incisions were closed using 4-0 Monocryl running subcuticular sutures. Wounds were then cleaned and covered with Dermabond. The patient tolerated the procedure well. We will admit her in 23-hour observation and start CHUCKING MACHINE SET UP OPERATOR for pain control as well as DVT prophylaxis with early ambulation, calf SCDs as well as Lovenox injections. She may have ice chips today and then tomorrow morning, we will start a phase 1 clear liquid diet and when she is tolerating 60 mL of fluid every 30 minutes, has adequate pain control with oral pain medications and ambulating well, we will discharge her home and she will be instructed to follow a phase 1 clear liquid diet for the next two weeks as well. Job ID: [id number] DocumentID: [id number] Dictated Date: 07/19/2020 11:25:20 Rougher Operator Date: 07/19/2020 16:13:15 Dictated By: MARIO MANUEL MD MTDD
--- NOTE | 2020-07-19 16:29 | NUR ---
ALFRED GAGNON CONTACTED FOR INCREASED HR 100-120. PT ASYMPTOMATIC, NO COMPLAINTS OF CP OR SOB. PT WAS OBSERVED TO HAVE O2 SAT FROM 90-93% WHILE SLEEPING, PT PLACED ON 1L VIA NC, O2 SATS NOW 97%. EKG OBTAINED PER ORDER FROM ALFRED GAGNON. EKG NORMAL SINUS HR 64BPM. EKG PLACED IN CHART, WILL CONTINUE TO MONITOR. Addendum: 07/19/20 at 1643 by KIRIT STONER RN EKG WAS TAKEN ON WRONG PT, PLEASE DISREGARD NOTE REFERRING TO EKG RESULTS
--- NOTE | 2020-07-19 17:04 | NUR ---
EKG RESULTS SENT TO ALFRED GAGNON
[2020-07-19] MEDS: CLINDAMYCIN 900 MG/50 ML IVPB 50 ML IV SCH (17:24)
--- NOTE | 2020-07-19 19:20 | NUR ---
called to pt room, pt c/o scant amt of urine after just having voided. Pt asked for catheter to be re-inserted. Explained to Pt that it may take some time post surgery and catheter removal for urinary pattern to return to normal. Bladder scanned pt at this time. 75ml present, explained to pt that this was a normal amt of urine to be present, pt voiced understanding. Will continue to monitor urinary pattern, Pt has voided twice since removal of bethea.
[2020-07-19] MEDS: ENOXAPARIN 40 MG/0.4 ML (LOVENOX) SYR SC SCH (20:12)
[2020-07-19] MEDS: oxyCODONE 5 MG/5 ML ORAL SOLN (roxiCODONE) 5 ML UDC PO PRN (20:39)
[2020-07-20] MEDS: ONDANSETRON 4 MG/2 ML (SDV) Z0FRAN IVP SCH ×2 (00:29→06:38)
[2020-07-20] MEDS: METOCLOPRAMIDE INJ 10 MG/2 ML (REGLAN) IVP SCH ×2 (00:29→06:38)
[2020-07-20 00:39] VITALS: BP 116/67
[2020-07-20] MEDS: RT-ALBUTEROL SULF 2.5 MG/3 ML PRE-MIX VIAL INH SCH ×3 (01:38→10:36)
--- NOTE | 2020-07-20 01:55 | NUR ---
PT had 2 episodes of anxiety attack. sats droped to 76 while pt was startled and woke up. Pt requested door to remain open. states she has had problems with anxiety in the past and is prescribed medication for anxiety at home. spoke with RT. Pt is aware that she may wear O2 at 2L via NC. Will continue to monitor.
[2020-07-20] MEDS: CLINDAMYCIN 900 MG/50 ML IVPB 50 ML IV SCH ×2 (02:28→10:01)
[2020-07-20] MEDS: metroNIDAZOLE 500MG/100ML IVPB 100 ML IV SCH (02:37)
[2020-07-20 03:11] VITALS: BP 126/89
[2020-07-20] MEDS ORDERED: LORazepam INJ 2 MG/ML (ATIVAN) VIAL ONE (05:33)
[2020-07-20] MEDS ORDERED: LORazepam INJ 2 MG/ML (ATIVAN) VIAL IVP PRN (05:45)
--- NOTE | 2020-07-20 05:51 | NUR ---
Pt experiencing panic attack at this time. Pt crying stating she "wants to go home". This nurse explained the importance of Dr. lerner before proceeding home. Pt had been c/o nausea this am, and has only had ice chips throughout the night as ordered. Explained to Pt the need to assess how she tolerates liquids and advanced diets on her stomach post op. Pt verbalized understanding, and requested medication for her anxiety. 0531- new order from Dr. Oneil - Adi 1mg IV Q6 PRN for anxiety.
[2020-07-20] MEDS: LACTATED RINGERS 1,000 ML IV SCH (06:17)
[2020-07-20 06:32] LABS: HEMOGLOBIN 14.3 g/dL (11.5-16.0); MEAN PLATELET VOLUME 12.6 fL (9.0-12.2)
[2020-07-20 08:00] VITALS: BP 120/75
--- NOTE | 2020-07-20 08:13 | Anesthesia-General Post-Op ---
General Patient Condition Mental Status/LOC: Same as Preop Cardiovascular: Satisfactory Nausea/Vomiting: Absent Respiratory: Satisfactory Pain: Controlled Complications: Absent Post Op Complications Complications None Follow Up Care/Instructions Patient Instructions None needed. Anesthesia/Patient Condition Patient Condition Patient is doing well, no complaints, stable vital signs, no apparent adverse anesthesia problems. No complications reported per nursing. DANUTA GOODWIN CRNA Jul 20, 2020 08:13
[2020-07-20] MEDS: ENOXAPARIN 40 MG/0.4 ML (LOVENOX) SYR SC SCH (08:30)
[2020-07-20] MEDS ORDERED: SENNA W/DOCUSATE (SENOKOT S) TABLET PO SCH (09:00)
[2020-07-20] MEDS ORDERED: PANTOPRAZOLE 40 MG (PROTONIX) VIAL IV SCH (09:00)
[2020-07-20] MEDS ORDERED: PANTOPRAZOLE 40 MG (PROTONIX) TAB PO SCH (09:00)
[2020-07-20] MEDS ORDERED: METOCLOPRAMIDE INJ 10 MG/2 ML (REGLAN) IVP PRN (10:15)
[2020-07-20] MEDS ORDERED: ONDANSETRON 4 MG/2 ML (SDV) Z0FRAN IVP PRN (10:15)
--- NOTE | 2020-07-20 11:20 | Progress Note ---
Subjective Date Seen by a Provider: Jul 20, 2020 Time Seen by a Provider: 11:00 Subjective/Events-last exam doing well. pain controlled. tolerating phase 1 clear liquid diet. ambulating well. Objective Exam Vital Signs Date Time Temp Pulse Resp B/P (MAP) Pulse Ox O2 Delivery O2 Flow Rate FiO2 07/20/20 08:00 35.9 67 18 120/75 (90) 97 Room Air 07/20/20 07:09 94 Room Air 07/20/20 03:11 37.0 101 18 126/89 (101) 95 Room Air 07/20/20 01:52 96 Room Air 07/20/20 00:39 36.3 108 18 116/67 (83) 92 Room Air 07/19/20 22:00 90 Room Air 07/19/20 20:15 95 Room Air 07/19/20 19:32 37.4 105 20 116/67 (83) 94 Room Air 07/19/20 18:53 94 Room Air 07/19/20 16:14 36.3 103 16 122/81 (95) 96 Nasal Cannula 1.00 07/19/20 15:24 92 18 125/86 (99) 93 Room Air 07/19/20 14:12 91 Room Air 07/19/20 12:45 36.5 89 20 125/83 (97) 93 Room Air 07/19/20 12:35 36.5 18 128/82 (97) 94 Room Air 07/19/20 12:35 Room Air 07/19/20 12:30 18 126/75 (92) 95 Room Air 07/19/20 12:20 Room Air 07/19/20 12:20 18 124/73 (90) 94 Room Air 07/19/20 12:12 Room Air 07/19/20 12:10 18 118/77 (91) 95 Room Air 07/19/20 12:08 OxyMask 3 07/19/20 12:03 OxyMask 6 07/19/20 12:01 OxyMask 6 07/19/20 12:00 18 119/89 (99) 97 OxyMask 6 07/19/20 11:50 OxyMask 6 07/19/20 11:50 18 119/75 (90) 96 OxyMask 6 07/19/20 11:40 20 127/72 (90) 95 OxyMask 6 07/19/20 11:35 36.4 20 144/91 (108) 94 OxyMask 6 07/19/20 11:35 OxyMask 6 I & O 07/20/20 07:00 Intake Total 1210 ml Output Total 1005 ml Balance 205 ml Capillary Refill : Less Than 3 SecondsLess Than 3 Seconds General Appearance: No Apparent Distress HEENT: PERRL/EOMI Neck: Full Range of Motion Respiratory: Chest Non Tender, Lungs Clear, Normal Breath Sounds Cardiovascular: Regular Rate, Rhythm Gastrointestinal: soft, tenderness Extremity: Normal Capillary Refill Neurologic/Psychiatric: Alert, Oriented x3 Skin: Normal Color Lymphatic: No Adenopathy Results Lab Laboratory Tests 07/20/20 06:04: White Blood Count 16.0H, Red Blood Count 4.64, Hemoglobin 14.3, Hematocrit 40, Mean Corpuscular Volume 87, Mean Corpuscular Hemoglobin 31, Mean Corpuscular Hemoglobin Concent 36, Red Cell Distribution Width 16.4H, Platelet Count 675H, Mean Platelet Volume 12.6H Microbiology 07/19/20 MRSA Screen - Final, Complete MRSA not isolated Assessment/Plan Assessment/Plan Assess & Plan/Chief Complaint s/p laparoscopic gastric sleeve resection. ambulate. IS. phase 1 clear liquid diet for next 2 weeks. f/u in office in 2 weeks. Clinical Quality Measures DVT/VTE Risk/Contraindication: Risk Factor Score Per Nursin RFS Level Per Nursing on Admit: 4+=Very High MARIO MANUEL MD Jul 20, 2020 11:20
[2020-07-20] MEDS: oxyCODONE 5 MG/5 ML ORAL SOLN (roxiCODONE) 5 ML UDC PO PRN (11:35)
[2020-07-20 12:00] VITALS: BP 139/95
[2020-07-20 12:45] VITALS: BP 139/95
--- NOTE | 2020-07-20 12:49 | NUR ---
DIONNE CORREA demonstrates understanding of discharge instructions and accurately returns instructions upon questioning. Copy of Post-Discharge Instructions and Medication Discharge Instructions given to PT. DIONNE CORREA is able to manage continuing needs after discharge. Patients belongings returned to PT. Skin dry and intact; no breakdown noted. Patient discharged from 410-1 on at 1245. DIONNE CORREA left floor via WC, accompanied by STAFF.
== END 2020-07-20 12:45 | disposition home or self-care (01) | DRG 621 ==
LOC: 4TH 07-19 08:12 → EDSTATUS 07-19 09:00 → 4TH 07-19 12:31
PROVIDERS: ADMIT Surgery; ATTEND Surgery
PROC: 0DB64Z3 Excision of Stomach, Percutaneous Endoscopic Approach, Vertical (ICD-10-PCS; principal; 2020-07-19 10:05)
DX: E66.01 Morbid (severe) obesity due to excess calories (principal); Z68.42 Body mass index [BMI] 45.0-49.9, adult; F41.9 Anxiety disorder, unspecified; R60.0 Localized edema; K42.9 Umbilical hernia without obstruction or gangrene; F31.9 Bipolar disorder, unspecified; F17.210 Nicotine dependence, cigarettes, uncomplicated; Z88.0 Allergy status to penicillin
CPT/HCPCS: 36415; 84703; 85025; 85027; 87081; 88307; 93005; 94640; 94664

== ENCOUNTER 2020-07-16 05:43 | Outpatient (RCR) | payer MEDICARE, MEDICAID ==
[~2020-07-16] VITALS: Ht 157.5 cm; Wt 120.5 kg
== END 2020-07-16 09:45 | disposition home or self-care (01) ==
LOC: PREOP 05:43
PROVIDERS: ATTEND Surgery
DX: Z01.812 Encounter for preprocedural laboratory examination (principal); E66.01 Morbid (severe) obesity due to excess calories; Z20.828 Contact with and (suspected) exposure to other viral communicable diseases
CPT/HCPCS: 87635

== ENCOUNTER 2022-10-29 10:29 | Emergency (ER) | payer MEDICARE, MEDICAID ==
[~2022-10-29] VITALS: Ht 62 cm; Wt 81.0 kg
[~2022-10-29 10:29] MED LIST changes: +ACET-2267 PO; +CLIN-144 PO; -CLIN300C11 PO; -FLUO20CA46; +FLUO20CA48; +HYDR-3584 PO; +HYDR12.56 PO
--- NOTE | 2022-10-29 10:51 | ED General ---
General Stated Complaint: LT RIB PAIN Source of Information: Patient Exam Limitations: No Limitations History of Present Illness Date Seen by Provider: Oct 29, 2022 Time Seen by Provider: 10:34 Initial Comments 32-year-old female with no pertinent past medical history coming in due to left- sided chest wall pain. Woke up Thursday morning with it, felt like when she had previously broken a rib, atraumatic. She states its gotten worse because of a cough from recently being ill. She states she is been coughing quite a bit and quite hard. Denies any fever, vomiting, diarrhea, shortness of breath associated with it. Also has a history of cold sores and has noticed that one pop up this morning on her lower lip. Went to walk-in clinic on Thursday and patient states no work-up was done and they gave her a Toradol shot. Allergies and Home Medications Allergies Coded Allergies: Estradiol Cypionate (Verified Allergy, Unknown, HIVES AND SWELLING, 07/19/20) Penicillins (Verified Allergy, Unknown, HIVES, PT HAS RECEIVED CEFAZOLIN IN THE PAST, 07/19/20) aripiprazole (Verified Allergy, Unknown, 07/19/20) Patient Home Medication List Home Medication List Reviewed: Yes Acetaminophen (Tylenol Extra Strength) 500 Mg Tablet, 500-1,000 MG PO Q8H PRN for PAIN-MILD (1-4), (Reported) Entered as Reported by: VERONIKA ZENDEJAS on 07/19/20 1525 Hydroxyzine HCl (Hydroxyzine HCl) 10 Mg Tablet, 10 MG PO TID PRN for ANXIETY, (Reported) Entered as Reported by: VERONIKA ZENDEJAS on 07/19/20 1525 Venlafaxine HCl (Venlafaxine HCl) 75 Mg Tab, 150 MG PO DAILY, (Reported) Entered as Reported by: MARKELL LOVING on 06/14/20 1425 Review of Systems Review of Systems Constitutional: No fever EENTM: no symptoms reported Respiratory: cough Cardiovascular: no symptoms reported Gastrointestinal: no symptoms reported 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: no symptoms reported Past Dmslzgv-Ahuolw-Zyffpa Hx Patient Social History Tobacco Use?: Yes Immunizations Up To Date Tetanus Booster (TDap): Less than 5yrs PED Vaccines UTD: Yes Seasonal Allergies Seasonal Allergies: No Past Medical History Surgeries: Yes (bx of cervix, c/s x2) Section Respiratory: No Cardiac: No Neurological: No Reproductive Disorders: No 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 Sexually Transmitted Disease: No 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: No UTI-Chronic Gastrointestinal: No Musculoskeletal: No Endocrine: No HEENT: No Cancer: Yes (Cervical dysplasia ) Psychosocial: Yes Anxiety, Suicide Attempts, Bipolar, Depression Integumentary: No Blood Disorders: No Adverse Reaction/Blood Tranf: No Family Medical History Cancer 19 MOTHER, Onset: - (uterine) Family history: Allergy 19 FATHER (seasonal allergies) Family history: Diabetes mellitus 19 FATHER (type 2) Family history: Hypertension 19 FATHER, Onset: - Hereditary disease 19 FATHER (bipolar) 19 MOTHER (bipolar) History of drug abuse 19 MOTHER, Onset: - Psychotic disorder 19 FATHER (bipolar) 19 MOTHER (pb3lnaiz suicidal) No Family History of: Abdominal aortic aneurysm [place]'s disease Alcoholism Aphasia Cancer of colon Cataract Chest pain Congenital heart disease Congestive heart failure Cystic fibrosis Dementia Dysphagia Family history: Alzheimer's disease Family history: Arthritis Family history: Asthma Family history: Breast disease Family history: Cardiovascular disease Family history: Coronary thrombosis Family history: Gastrointestinal disease Family history: Glaucoma Family history: Osteoporosis Family history: Thyroid disorder Headache Hearing loss Heart disease History of - anemia History of - disorder History of - respiratory disease Human immunodeficiency virus (HIV) seropositivity Hypercholesterolemia Infertile Kidney disease Malignant neoplasm of lung Myocardial infarction Parkinson's disease Prostate cancer Seizure disorder Stroke Tuberculosis Visual impairment No Pertinent Family Hx Physical Exam Vital Signs Capillary Refill : Height, Weight, BMI Height: 5'2.00" Weight: 270lbs. 0.0oz. 122.676887bq; 48.57 BMI Method:Stated General Appearance: No Apparent Distress, WD/WN Eyes: Bilateral Eye Normal Inspection HEENT: PERRL/EOMI, Pharynx Normal, Other (Erythematous ulcerations on the lower lip consistent with cold sore) Neck: Full Range of Motion, Normal Inspection, Non Tender, Supple Respiratory: Lungs Clear, Normal Breath Sounds, No Accessory Muscle Use, No Respiratory Distress, Other (Chest wall pain along the left lower ribs) Cardiovascular: Regular Rate, Rhythm, No Edema, Normal Peripheral Pulses Gastrointestinal: Normal Bowel Sounds, Non Tender, Soft; No Distended, No Guarding Back: Normal Inspection, No CVA Tenderness, No Vertebral Tenderness Extremity: Normal Capillary Refill, Normal Inspection, Normal Range of Motion, Non Tender, No Calf Tenderness, No Pedal Edema Neurologic/Psychiatric: Alert, No Motor/Sensory Deficits, Normal Mood/Affect Skin: Normal Color, Warm/Dry Lymphatic: No Adenopathy Progress/Results/Core Measures Suspected Sepsis SIRS Temperature: Pulse: Respiratory Rate: Blood Pressure / Mean: Results/Orders My Orders Orders - NAREN SIMMONS MD Chest Pa/Lat (2 View) (10/29/22 10:48) Ekg Tracing (10/29/22 10:48) Ketorolac Injection (Toradol Injection) (10/29/22 11:00) Ketamine Injection (Ketalar Injection) (10/29/22 11:15) Succinylcholine Injection (Succinylcholi (10/29/22 11:15) Vital Signs/I&O Capillary Refill : Progress Note : Progress Note 32-year-old female with above history coming in due to left-sided chest wall pain in the setting of a viral illness with frequent cough. ABCs were intact and vitals were stable on presentation. She did have some chest wall tenderness on the left consistent with her symptoms. Differential includes pneumonia versus pleural effusion versus rib fracture versus some other etiology. X-ray of the chest ordered and interpreted by me showing no obviously displaced rib fracture, no pleural effusion, no obvious pneumonia, normal cardiac silhouette. EKG ordered and interpreted by me showing no acute ischemic changes. Patient given IM Toradol for pain control. Patient low risk for a PE per [place] criteria, showing no clinical signs of a DVT on exam today. She is PERC negative. I suspect she has chest wall discomfort from the cough which will improve with time. I believe she is otherwise stable for discharge with outpatient follow-up. She was sent home with strict return precautions. Patient was given prescription for valacyclovir for her cold sore. ECG Initial ECG Impression Date: Oct 29, 2022 Initial ECG Impression Time: 11:20 Initial ECG Rate: 97 Initial ECG Rhythm: Normal Sinus Comment Narrow QRS, normal axis, no significant ST changes or T wave abnormality Diagnostic Imaging Diagonstic Imaging: Xray (chest) Comments NAME: DIONNE CORREA B[facility]bara [facility] REC#: [id number] PT STATUS: REG ER : 1990 PHYSICIAN: NAREN SIMMONS MD ADMIT DATE: 10/29/22/ER FS Draft Date of Exam:10/29/22 CHEST PA/LAT (2 VIEW) INDICATION: Left rib pain. EXAMINATION: 2 view chest 10/29/2022. COMPARISON: 03/20/2015 FINDINGS: The cardiomediastinal silhouette is unremarkable. The pulmonary vasculature is within normal limits. The lungs and pleural spaces are clear. IMPRESSION: No evidence of an acute cardiopulmonary process. Dictated on workstation # [id number] Dict: 10/29/22 1110 Trans: 10/29/22 1112 [id number] Interpreted by: JASSI VEGA MD Electronically signed by: Departure Impression Primary Impression: Chest wall pain Additional Impressions: Upper respiratory infection Qualified Codes: J06.9 - Acute upper respiratory infection, unspecified Cold sore Disposition: HOME, SELF-CARE Condition: Stable Departure-Patient Inst. Decision time for Depature: 11:25 Referrals: NO,LOCAL PHYSICIAN (PCP/Family) Primary Care Physician Patient Instructions: Cold Sores ED Add. Discharge Instructions: We think is likely you do have a chest wall contusion or may be a minimally displaced rib fracture on the left side from the coughing. Nothing significant on the chest x-ray which is reassuring. You will be on Toradol for the next 3 days, do not mix ibuprofen with it. After you are done with that prescription, you can take ibuprofen 600 mg every 6 hours as needed for pain. You can also buy [id number] lidocaine patches in place that where you hurt the most. You also be on 1 day of valacyclovir for your cold sore. These medications were sent to the pharmacy [facility] Ketorolac Tromethamine (Ketorolac Tromethamine) 10 Mg Tablet 10 MG PO Q6H for 3 Days, #12 TAB Prov: NAREN SIMMONS MD 10/29/22 Valacyclovir HCl (Valacyclovir) 1,000 Mg Tablet 2000 MG PO Q12H for 1 Day, #4 TAB Prov: NAREN SIMMONS MD 10/29/22 Work/School Note: Family Work Note, Patient Received Medical Care In the Emergency Department On: Oct 29, 2022 Patient Will Be Able to Return to Work/School On: Oct 30, 2022 Work Release Form Date Seen in the Emergency Department: Oct 29, 2022 Return to Work: Oct 30, 2022 Restrictions: No Restrictions NAREN SIMMONS MD Oct 29, 2022 10:51
[2022-10-29] MEDS ORDERED: KETOROLAC 15 MG/ML VIAL IM ONE (11:00)
--- NOTE | 2022-10-29 11:13 | Diagnostic Imaging Report ---
INDICATION: Left rib pain. EXAMINATION: 2 view chest 10/29/2022. COMPARISON: 03/20/2015 FINDINGS: The cardiomediastinal silhouette is unremarkable. The pulmonary vasculature is within normal limits. The lungs and pleural spaces are clear. IMPRESSION: No evidence of an acute cardiopulmonary process. Dictated by: Dictated on workstation # [id number]
[2022-10-29] MEDS ORDERED: KETAMINE HCL 100 MG/ML 5 ML VIAL IV ONE (11:15)
[2022-10-29] MEDS ORDERED: SUCCINYLCHOLINE INJ 100 MG/5 ML SYR/VIAL INJ ONE (11:15)
[2022-10-29] MEDS ORDERED: VALA10007 PO (11:21)
[2022-10-29] MEDS ORDERED: KETO10TA PO (11:21)
[2022-10-29 11:27] VITALS: BP 132/87
== END 2022-10-29 11:28 | disposition home or self-care (01) ==
LOC: EDUNIT# 10:29 → ER FS 10:31
DX: J06.9 Acute upper respiratory infection, unspecified (principal)
CPT/HCPCS: 71046; 93005

== ENCOUNTER 2023-07-15 12:32 | Day surgery (SDC) | payer MEDICARE, MEDICAID ==
[2023-07-15] VITALS (10 sets, daily range): BP systolic 96–125; BP diastolic 63–85
[~2023-07-15] VITALS: Ht 157 cm; Wt 75.0 kg
[~2023-07-15 12:32] MED LIST changes: +KETO10TA PO; +VALA10007 PO
[2023-07-15] MEDS ORDERED: CLINDAMYCIN 600 MG/50 ML IVPB 50 ML IV ONE ×2 (13:22→13:30)
[2023-07-15] MEDS ORDERED: LACTATED RINGERS 1,000 ML 1,000 ML IV PRN (13:30)
[2023-07-15] MEDS ORDERED: LIDOCAINE 2% w/EPI 1:100,000 20 ML VIAL ONE (14:29)
[2023-07-15] MEDS ORDERED: LIDOCAINE PF 2% 5 ML VIAL ONE (16:35)
[2023-07-15] MEDS ORDERED: proPOfol INJECTION 200 MG/20 ML VIAL IV ONE (16:35)
[2023-07-15] MEDS ORDERED: SEVOFLURANE (ULTANE) 15 ML INHAL SOLN ONE ×2 (16:35→17:48)
[2023-07-15] MEDS ORDERED: fentaNYL INJECTION 100 MCG/2 ML VIAL ONE ×2 (16:35→18:14)
[2023-07-15] MEDS ORDERED: ONDANSETRON INJECTION 4 MG/2 ML (SDV) ONE (16:35)
[2023-07-15] MEDS ORDERED: MIDAZOLAM INJ 2 MG/2 ML VIAL ONE (16:35)
--- NOTE | 2023-07-15 16:56 | Progress Note-Pre Operative ---
Pre-Operative Progress Note Date of Available H&P: Jul 15, 2023 Date H&P Reviewed: Jul 15, 2023 Time H&P Reviewed: 16:00 History & Physical: No changes noted Pre-Operative Diagnosis: right breast persistent nipple drainage and lateral NAC abscess MARIO MANUEL MD Jul 15, 2023 16:56
[2023-07-15] MEDS ORDERED: HYDR-3817 PO (16:58)
--- NOTE | 2023-07-15 16:58 | Discharge Inst-Surgical ---
D/C Lap Instructions-KIDO New, Converted, or Re-Newed RX: RX on Chart Follow Up Appt in 2 weeks Activity as tolerated keep wound clean/dry Regular Diet Symptoms to Report: Fever over 101 degree F, Nausea/Vomiting Infection Signs and Symptoms to report: Increased redness, Foul odor of wound, Increased drainage Bathing instructions: May shower Operative Area Clean/Dry; Keep incision clean/dry If any problems/questions: Contact your physician or go to Emergency Room MARIO MANUEL MD Jul 15, 2023 16:58
[2023-07-15] MEDS ORDERED: ACETAMINOPHEN 325 MG TABLET PO PRN (17:00)
[2023-07-15] MEDS ORDERED: ONDANSETRON INJECTION 4 MG/2 ML (SDV) IVP PRN ×2 (17:00→18:00)
[2023-07-15] MEDS ORDERED: morphine INJ 10 MG/ML 1ML (SYR OR VIAL) IVP PRN ×2 (17:00)
[2023-07-15] MEDS ORDERED: oxyCODONE/ACETAMINOPHEN 5/325MG TABLET PO PRN (17:00)
--- NOTE | 2023-07-15 17:58 | Anesthesia-General Post-Op ---
General Patient Condition Mental Status/LOC: Same as Preop Cardiovascular: Satisfactory Nausea/Vomiting: Absent Respiratory: Satisfactory Pain: Controlled Complications: Absent Post Op Complications Complications None Follow Up Care/Instructions Patient Instructions None needed. Anesthesia/Patient Condition Patient Condition Patient is doing well, no complaints, stable vital signs, no apparent adverse anesthesia problems. No complications reported per nursing. DANUTA GOODWIN CRNA Jul 15, 2023 17:58
[2023-07-15] MEDS ORDERED: MEPERIDINE INJ 50 MG/ML VIAL IVP ONE (18:00)
[2023-07-15] MEDS ORDERED: fentaNYL INJECTION 100 MCG/2 ML VIAL IVP ONE (18:00)
--- NOTE | 2023-07-15 18:01 | Progress Note-Post Operative ---
Post-Operative Progess Note Surgeon (s)/Labor Relations Officer (s) Surgeon MARIO MANUEL MD Labor Relations Officer: none Pre-Operative Diagnosis right breast persistent nipple drainage and lateral NAC abscess Post-Operative Diagnosis same Procedure & Operative Findings Date of Procedure 07/15/23 Procedure Performed/Findings right breast nipple exploration and ductal quadrantectomy. Anesthesia Type general LMA with local Estimated Blood Loss Estimated blood loss (mL): minimal Specimens/Packing Specimens Removed right breast lower lateral breast ductal quadrant. MARIO MANUEL MD Jul 15, 2023 18:01
--- NOTE | 2023-07-16 03:36 | OPERATIVE REPORT ---
DATE OF SERVICE: 07/15/2023 ATTENDING PRIMARY CARE PHYSICIAN: Dr. Job Storm. PREOPERATIVE DIAGNOSIS: Right breast chronic ductal infection. POSTOPERATIVE DIAGNOSIS: Right breast chronic ductal infection. PROCEDURE: Nipple exploration and right breast lower lateral ductal quadrantectomy. SURGEON: Mario Manuel MD ANESTHESIA: General laryngeal mask airway with local. ESTIMATED BLOOD LOSS: Minimal. FINDINGS: Chronically inflamed ductal system in the right breast lower lateral quadrant. DISPOSITION: The patient tolerated the procedure well. INDICATIONS: The patient is a 33-year-old female who underwent bilateral nipple piercing. She states that she had no issues with the left breast, but the right breast nipple areolar complex along the right lower and lateral aspect developed pain, swelling and nipple drainage, which was described as bloody and sometimes it is also purulent. She did take around the antibiotics and this may have helped a small amount; however, she had reoccurrence of symptoms. Upon examination, there did appear to be fluctuance as well as hardness in the right breast lower and lateral ductal quadrants. Recommendation was to proceed with a ductal exploration and right breast ductal quadrantectomy. DESCRIPTION OF PROCEDURE: The patient was brought to the operating room, laid supine on the table. After adequate IV pain and sedative medications and general laryngeal mask airway intubation, the chest was prepped and draped in standard surgical fashion. A 2% lidocaine with epinephrine was then used to anesthetize the overlying skin in the nipple areolar complex. This area was then marked off with a marking pen in a crescent shape. The breast ductal system was then probed with multiple sizers of lacrimal probes. We were able to identify the responsible ductal quadrant, which was in the lower lateral aspect of the right nipple areolar complex. A crescent-shaped skin incision was then made at the nipple areolar complex using a #15 blade. There was chronic inflammation noted of the ductal system in this quadrant. We then proceeded with meticulous dissection of the ductal quadrant using a #15 blade as well as electrocautery until normal-appearing tissue. The breast tissue was identified inferiorly. There did not appear to be any adjacent neoplastic masses. We proceeded with retraction of the breast tissue using Vermillion clamps around the lacrimal probe and proceeded with the breast quadrantectomy using electrocautery as well as a #15 blade with visualization of good hemostasis. The specimen was sent to pathology. The wound was then irrigated with sterile saline and suctioned out. The subcutaneous tissue was then reapproximated using 4-0 Vicryl interrupted sutures and the skin was closed using 4-0 Monocryl running subcuticular suture. Wound was then cleaned and covered with Dermabond. The breast was then covered with fluffed gauze followed by ABD pad, followed by 6-inch Mina wrap. The patient tolerated the procedure well. We instructed to keep the dressing on until tomorrow and then remove. She may shower and do all of her normal activities of daily living; however, no strenuous activities. We will also want her to continue to wear supportive garments in the area to prevent seroma formation for the next 2 weeks as well. We will also have her follow up in the office to discuss the pathology results as well as to evaluate the wound in 2 weeks. Job ID: [id number] DocumentID: [id number] Dictated Date: 07/15/2023 17:55:26 Therapy Teacher Date: 07/16/2023 03:34:00 Dictated By: MARIO MANUEL MD MTDD
== END 2023-07-15 19:55 | disposition home or self-care (01) ==
LOC: SDC 12:32
PROVIDERS: ATTEND Surgery
DX: N61.1 Abscess of the breast and nipple (principal); Z87.891 Personal history of nicotine dependence
CPT/HCPCS: 84703; 87081; 88307